=== PATIENT | female | born 1950 | race Caucasian/White ===

== ENCOUNTER → 2016-05-28 | Outpatient (CLI) | payer MEDICARE ==
--- NOTE | 2016-06-01 10:23 | MM ---
Reason for exam: screening (asymptomatic). Last mammogram was performed 4 years and 4 months ago. History: Patient is postmenopausal. Taking estrogen for 2 months beginning at age 61. Taking progesterone for 2 months beginning at age 61. Physical Findings: A clinical breast exam by your physician is recommended on an annual basis and results should be correlated with mammographic findings. MG Screening Mammo w CAD Bilateral CC and MLO view(s) were taken. Prior study comparison: January 18, 2012, bilateral digital screening mammo w/CAD. June 28, 2008, bilateral digital screening mammogram. The breast tissue is almost entirely fat. Finding: There are vascular calcifications. There is a chronic nodularity in the right breast. No significant changes in finding since January 18, 2012 and June 28, 2008. ASSESSMENT: Benign, BI-RAD 2 RECOMMENDATION: Routine screening mammogram of both breasts in 1 year.
== END | disposition home or self-care (01) ==
LOC: RADMAMWWP 14:28
PROVIDERS: ATTEND Family Medicine
DX: Z12.31 Encounter for screening mammogram for malignant neoplasm of breast (principal)

== ENCOUNTER → 2016-06-03 | Outpatient (CLI) | payer MEDICARE ==
--- NOTE | 2016-06-03 12:13 | CTL ---
EXAMINATION TYPE: CT Low Dose Lung DATE OF EXAM ORDERED: 06/03/2016 11:41 AM COMPARISON: None HISTORY: . Low Dose CT Lung Screening CT DLP: 70.[address] CTDI: 2.4 mGy IV CONTRAST USED: None. SCREENING VISIT: First visit COMPARISON: None. TECHNIQUE: Low dose computed tomography scan was performed through the chest at 1 millimeter thick se ctions and reconstructed images in the coronal plane at [address] DIAGNOSTIC QUALITY: Satisfactory FINDINGS: LUNG NODULES: Not present Left lung: no nodules identified.Right lung: no nodules identified. LUNGS: COPD: Severity: None Fibrosis: Severity:None Lymph nodes: None Other findings: None RIGHT PLEURAL SPACE: Effusion: None Calcification: None Thickening: None Pneumothorax: None LEFT PLEURAL SPACE: Effusion: None Calcification: None Thickening: None Pneumothorax: None HEART: Heart Size: Mildly enlarged Coronary calcification: Mild Pericardial effusion: None OTHER FINDINGS: Upper abdomen: No significant abnormality Bony thorax: Degenerative changes Supraclavicular region: No significant abnormalityOther: No significant abnormalityI IMPRESSION: Benign FOLLOW UP CT CHEST RECOMMENDATION: Follow-up screening in one year CT LUNG RAD: Negative category 1 LUNG RAD CATEGORY 1
== END ==
LOC: RADCTMAIN 11:10
PROVIDERS: ATTEND Family Medicine
DX: Z09 Encounter for follow-up examination after completed treatment for conditions other than malignant neoplasm (principal); Z87.891 Personal history of nicotine dependence

== ENCOUNTER → 2016-11-17 | Outpatient (CLI) | payer MEDICARE, OTHER ==
--- NOTE | 2016-11-17 17:26 | XR ---
EXAMINATION TYPE: XR Hip Complete RT DATE OF EXAM: 11/17/2016 COMPARISON: NONE HISTORY: Hip pain TECHNIQUE: 2 views FINDINGS: I see no fracture nor dislocation. Hip joint space is fairly normal. IMPRESSION: Negative right hip exam
== END | disposition home or self-care (01) ==
LOC: RADXRMAIN 16:23
PROVIDERS: ATTEND Family Medicine
DX: M25.551 Pain in right hip (principal)
CPT/HCPCS: 73502

== ENCOUNTER 2017-06-02 12:31 | Inpatient (IN) | payer MEDICARE, OTHER ==
[2017-06-02 12:47] LABS: Glucose,Whole Blood 137 mg/dL (75-99)
[2017-06-02] MEDS ORDERED: SODIUM CHLORIDE 0.9% 1,000 ML IV STA (12:51)
--- NOTE | 2017-06-02 12:54 | ED ---
General Adult HPI - General Chief complaint: Syncope Stated complaint: Near syncope Time Seen by Provider: 06/02/17 12:46 Source: patient, family, RN notes reviewed Mode of arrival: wheelchair Limitations: no limitations - History of Present Illness Initial comments: Patient is a pleasant 67-year-old female presenting to the emergency department with near syncopal episodes. Symptoms have been occurring for several weeks. Patient has episodes where legs get weak and she falls or near falls. Patient states she becomes very close to passing out and does get somewhat confused. Patient does not believe she actually fully passes out. Patient has been fatigued lately. Patient has had some increased stress and not sleeping well at night. No chest pain or dyspnea. No weakness. No abdominal pain. - Related Data Home Medications Medication Instructions Recorded Confirmed Insulin Glargine [Lantus] 18 units SQ HS 10/04/14 06/02/17 Omeprazole [PriLOSEC] 20 mg PO BID 10/04/14 06/02/17 traZODone HCL [Desyrel] 100 mg PO HS 10/04/14 06/02/17 Lisinopril [Prinivil] 20 mg PO BID 10/18/14 06/02/17 amLODIPine [Norvasc] 10 mg PO DAILY 10/18/14 06/02/17 ALPRAZolam [Xanax] 0.5 mg PO BID PRN 06/02/17 06/02/17 Aspirin 81 mg PO DAILY 06/02/17 06/02/17 Citalopram Hydrobromide [CeleXA] 40 mg PO HS 06/02/17 06/02/17 Clopidogrel [Plavix] 75 mg PO DAILY 06/02/17 06/02/17 Empagliflozin [Jardiance] 10 mg PO DAILY 06/02/17 06/02/17 Furosemide [Lasix] 20 mg PO BID 06/02/17 06/02/17 Gabapentin [Neurontin] 800 mg PO QID 06/02/17 06/02/17 Metoprolol Tartrate [Lopressor] 50 mg PO BID 06/02/17 06/02/17 Rosuvastatin [Crestor] 20 mg PO DAILY 06/02/17 06/02/17 metFORMIN HCL [Glucophage] 1,000 mg PO BID 06/02/17 06/02/17 Allergies Allergy/AdvReac Type Severity Reaction Status Date / Time No Known Allergies Allergy Verified 06/02/17 13:07 Review of Systems ROS Statement: Those systems with pertinent positive or pertinent negative responses have been documented in the HPI. ROS Other: All systems not noted in ROS Statement are negative. Constitutional: Denies: fever Eyes: Denies: eye pain ENT: Denies: ear pain Respiratory: Denies: cough Cardiovascular: Denies: chest pain Endocrine: Reports: fatigue Gastrointestinal: Denies: abdominal pain Genitourinary: Denies: dysuria Musculoskeletal: Denies: back pain Skin: Denies: rash Neurological: Denies: headache Past Medical History Past Medical History: CVA/TIA, Diabetes Mellitus, Eye Disorder, Fibromyalgia, GERD/Reflux, Hypertension, Osteoarthritis (OA), Sleep Apnea/CPAP/BIPAP Additional Past Medical History / Comment(s): 12/13/14 Pt admitted to floor s/p lap sleeve gastrectomy. Other HX: TIA 1997, diabetic retinopathy bilaterally , sleep apnea-does not have CPAP, PT HAS BALANCE ISSUES. History of Any Multi-Drug Resistant Organisms: None Reported Past Surgical History: Back Surgery, Bariatric Surgery, Section, Orthopedic Surgery Additional Past Surgical History / Comment(s): 12/13/14 Laparoscopic sleeve gastrectomy. Other SX: right Knee arthroscopy, surg., EGD, 3 C-Sections. Past Anesthesia/Blood Transfusion Reactions: No Reported Reaction Past Psychological History: Bipolar Smoking Status: Never smoker Past Alcohol Use History: None Reported Past Drug Use History: None Reported - Past Family History Father Family Medical History: Myocardial Infarction ([place]) Mother Family Medical History: No Reported History General Exam Limitations: no limitations General appearance: alert, in no apparent distress Head exam: Present: atraumatic Eye exam: Present: normal appearance, PERRL, EOMI. Absent: nystagmus ENT exam: Present: normal oropharynx Neck exam: Present: normal inspection Respiratory exam: Present: normal lung sounds bilaterally Cardiovascular Exam: Present: normal rhythm, bradycardia Expanded Peripheral pulses: 2+: Radial (R), Radial (L), Dorsalis Pedis (R), Dorsalis Pedis (L) GI/Abdominal exam: Present: soft. Absent: tenderness Extremities exam: Present: normal inspection Neurological exam: Present: alert, oriented X3, CN II-XII intact. Absent: motor sensory deficit Expanded Neurological exam: Present: protecting the airway Patient oriented to: Present: person, place, time Speech: Present: fluid speech Motor strength exam: RUE: 5, LUE: 5, RLE: 5, LLE: 5 Eye Response: (4) open spontaneously Motor Response: (6) obeys commands Verbal Response: (5) oriented Psychiatric exam: Present: normal affect, normal mood Skin exam: Present: normal color Course Vital Signs 06/02/17 06/02/17 06/02/17 12:33 13:00 14:48 Temperature 98.7 F 97.8 F Pulse Rate 70 51 L Respiratory 17 16 Rate Blood Pressure 89/52 101/54 102/58 O2 Sat by Pulse 94 L 98 Oximetry EKG Findings - EKG Comments: EKG Findings:: Sinus bradycardia 48. AR 154. QRS 106. QT 478. QTC 427. Left axis. Normal QRS. No acute ST change. Medical Decision Making - Medical Decision Making Patient reevaluated and resting comfortably in bed. Patient updated on results and plan. Case was discussed in detail with Dr. Ruggiero, who will admit his patient. Cardiology will be consult is secondary to bradycardia. - Lab Data Result diagrams: 06/02/17 13:01 06/02/17 13:01 Lab Results 06/02/17 06/02/17 06/02/17 Range/Units 12:36 13:01 13:01 WBC 7.4 (3.8-10.6) k/uL RBC 4.38 (3.80-5.40) m/uL Hgb 11.0 L (11.4-16.0) gm/dL Hct 35.5 (34.0-46.0) % MCV 81.1 (80.0-100.0) fL MCH 25.1 (25.0-35.0) pg MCHC 31.0 (31.0-37.0) g/dL RDW 15.1 (11.5-15.5) % Plt Count 270 (150-450) k/uL Neutrophils % 60 % Lymphocytes % 32 % Monocytes % 5 % Eosinophils % 1 % Basophils % 1 % Neutrophils # 4.4 (1.3-7.7) k/uL Lymphocytes # 2.4 (1.0-4.8) k/uL Monocytes # 0.4 (0-1.0) k/uL Eosinophils # 0.1 (0-0.7) k/uL Basophils # 0.0 (0-0.2) k/uL Hypochromasia Moderate PT (9.0-12.0) sec INR (<1.2) APTT (22.0-30.0) sec D-Dimer (<0.60) mg/L FEU Sodium (137-145) mmol/L Potassium (3.5-5.1) mmol/L Chloride (98-107) mmol/L Carbon Dioxide (22-30) mmol/L Anion Gap mmol/L BUN (7-17) mg/dL Creatinine (0.52-1.04) mg/dL Est GFR (MDRD) Af Amer (>60 ml/min/1.73 sqM) Est GFR (MDRD) Non-Af (>60 ml/min/1.73 sqM) Glucose (74-99) mg/dL POC Glucose (mg/dL) 137 H (75-99) mg/dL POC Glu Gasket Inspector ID Stratton, Kelly Calcium (8.4-10.2) mg/dL Magnesium (1.6-2.3) mg/dL Total Bilirubin (0.2-1.3) mg/dL AST (14-36) U/L ALT (9-52) U/L Alkaline Phosphatase (38-126) U/L Total Creatine Kinase 76 (30-135) U/L CK-MB (CK-2) 1.0 (0.0-2.4) ng/mL CK-MB (CK-2) Rel Index 1.3 Troponin I <0.012 (0.000-0.034) ng/mL Total Protein (6.3-8.2) g/dL Albumin (3.5-5.0) g/dL Urine Color Urine Appearance (Clear) Urine pH (5.0-8.0) Ur Specific Benedict (1.001-1.035) Urine Protein (Negative) Urine Glucose (UA) (Negative) Urine Ketones (Negative) Urine Blood (Negative) Urine Nitrite (Negative) Urine Bilirubin (Negative) Urine Urobilinogen (<2.0) mg/dL Ur Leukocyte Esterase (Negative) Urine RBC (0-5) /hpf Urine WBC (0-5) /hpf Ur Squamous Epith Cells (0-4) /hpf Urine Bacteria (None) /hpf Hyaline Casts (0-2) /lpf Urine Mucus (None) /hpf 06/02/17 06/02/17 06/02/17 Range/Units 13:01 13:01 13:53 WBC (3.8-10.6) k/uL RBC (3.80-5.40) m/uL Hgb (11.4-16.0) gm/dL Hct (34.0-46.0) % MCV (80.0-100.0) fL MCH (25.0-35.0) pg MCHC (31.0-37.0) g/dL RDW (11.5-15.5) % Plt Count (150-450) k/uL Neutrophils % % Lymphocytes % % Monocytes % % Eosinophils % % Basophils % % Neutrophils # (1.3-7.7) k/uL Lymphocytes # (1.0-4.8) k/uL Monocytes # (0-1.0) k/uL Eosinophils # (0-0.7) k/uL Basophils # (0-0.2) k/uL Hypochromasia PT 10.4 (9.0-12.0) sec INR 1.1 (<1.2) APTT 22.8 (22.0-30.0) sec D-Dimer 0.55 (<0.60) mg/L FEU Sodium 141 (137-145) mmol/L Potassium 4.2 (3.5-5.1) mmol/L Chloride 103 (98-107) mmol/L Carbon Dioxide 24 (22-30) mmol/L Anion Gap 14 mmol/L BUN 23 H (7-17) mg/dL Creatinine 1.85 H (0.52-1.04) mg/dL Est GFR (MDRD) Af Amer 33 (>60 ml/min/1.73 sqM) Est GFR (MDRD) Non-Af 27 (>60 ml/min/1.73 sqM) Glucose 106 H (74-99) mg/dL POC Glucose (mg/dL) (75-99) mg/dL POC Glu Gasket Inspector ID Calcium 9.6 (8.4-10.2) mg/dL Magnesium 1.7 (1.6-2.3) mg/dL Total Bilirubin 0.2 (0.2-1.3) mg/dL AST 15 (14-36) U/L ALT 15 (9-52) U/L Alkaline Phosphatase 58 (38-126) U/L Total Creatine Kinase (30-135) U/L CK-MB (CK-2) (0.0-2.4) ng/mL CK-MB (CK-2) Rel Index Troponin I (0.000-0.034) ng/mL Total Protein 7.0 (6.3-8.2) g/dL Albumin 4.1 (3.5-5.0) g/dL Urine Color Yellow Urine Appearance Clear (Clear) Urine pH 5.0 (5.0-8.0) Ur Specific Benedict 1.010 (1.001-1.035) Urine Protein Negative (Negative) Urine Glucose (UA) 3+ H (Negative) Urine Ketones Negative (Negative) Urine Blood Negative (Negative) Urine Nitrite Negative (Negative) Urine Bilirubin Negative (Negative) Urine Urobilinogen <2.0 (<2.0) mg/dL Ur Leukocyte Esterase Small H (Negative) Urine RBC <1 (0-5) /hpf Urine WBC 2 (0-5) /hpf Ur Squamous Epith Cells 1 (0-4) /hpf Urine Bacteria Rare H (None) /hpf Hyaline Casts 14 H (0-2) /lpf Urine Mucus Rare H (None) /hpf - Radiology Data Radiology results: report reviewed (Computed tomography scan of the brain reveals no acute process.), image reviewed (Two-view chest x-ray shows no acute process.) Disposition Clinical Impression: Near syncope, Bradycardia Disposition: [facility] Referrals: Chester Ruggiero MD [Primary Care Provider] - 1-2 days Decision Time: 15:01
[2017-06-02 13:16] LABS: Basophils % (A) 1 %; Eosinophils # (A) 0.1 k/uL (0-0.7); Eosinophils % (A) 1 %; HCT 35.5 % (34.0-46.0); Hypochromasia Moderate; Lymphocytes # (A) 2.4 k/uL (1.0-4.8); Lymphocytes % (A) 32 %; MCH 25.1 pg (25.0-35.0); MCV 81.1 fL (80.0-100.0); Mean Platelet Volume 7.9; Monocytes # (A) 0.4 k/uL (0-1.0); Monocytes % (A) 5 %; Neutrophils # (A) 4.4 k/uL (1.3-7.7); Neutrophils % (A) 60 %; Platelet Count 270 k/uL (150-450); RBC 4.38 m/uL (3.80-5.40); RDW 15.1 % (11.5-15.5); WBC 7.4 k/uL (3.8-10.6)
[2017-06-02 13:25] LABS: Albumin 4.1 g/dL (3.5-5.0); Calcium 9.6 mg/dL (8.4-10.2); Potassium 4.2 mmol/L (3.5-5.1); Total Bilirubin 0.2 mg/dL (0.2-1.3)
--- NOTE | 2017-06-02 13:26 | CT ---
EXAMINATION TYPE: CT brain wo con DATE OF EXAM: 06/02/2017 COMPARISON: 03/06/2015 HISTORY: fall from syncope, dizziness, light-headed CT DLP: 963.6 mGycm Automated exposure control for dose reduction was used. FINDINGS: There is no suspicious extra-axial fluid collection. No intracranial hemorrhage, midline shift or mas s effect. Scattered areas of hypoattenuation are seen within the deep white matter of the frontal lob es, likely related to chronic microangiopathy. Santos-white matter junction is preserved. Ventricles an d peripheral sulci are again symmetric and mildly prominent compatible with minimal age-related atrop hy is seen on the prior exam. Frontal sinuses are atrophic. Visualized paranasal sinuses and mastoid air cells are well aerated. There is atherosclerosis of the intracranial vasculature. Orbits and extr aocular muscles are symmetric and lenses are in place. IMPRESSION: 1. NO ACUTE INTRACRANIAL PROCESS. 2. MILD BURDEN NONSPECIFIC WHITE MATTER CHANGE, LIKELY ON THE BASIS OF CHRONIC MICROANGIOPATHY.
[2017-06-02 13:35] LABS: Creatine Kinase 76 U/L (30-135); D-Dimer 0.55 mg/L FEU (<0.60); INR 1.1 (<1.2); Partial Thromboplastin Time 22.8 sec (22.0-30.0); Prothrombin Time 10.4 sec (9.0-12.0)
--- NOTE | 2017-06-02 13:36 | XR ---
EXAMINATION TYPE: XR chest 2V DATE OF EXAM: 06/02/2017 COMPARISON: NONE HISTORY: Shortness of breath. TECHNIQUE: Frontal and lateral views of the chest are obtained. FINDINGS: There is no focal air space opacity, pleural effusion, or pneumothorax seen. The cardiac silhouette size is within normal limits. The osseous structures are intact. IMPRESSION: No acute cardiopulmonary process.
[2017-06-02 13:48] LABS: Troponin I <0.012 ng/mL (0.000-0.034)
[2017-06-02 14:18] LABS: Appearance,Urine Clear (Clear); Bacteria,Urine Rare /hpf; Bilirubin,Urine Negative (Negative); Blood,Urine Negative (Negative); Color,Urine Yellow; Glucose,Urine (UA) 3+ (Negative); Hyaline Casts,Urine 14 /lpf (0-2); Ketones,Urine Negative (Negative); Leukocyte Esterase,Urine Small (Negative); Mucus,Urine Rare /hpf; Protein,Urine Negative (Negative); RBC,Urine <1 /hpf (0-5); Squamous Epithelial Cell,Urine 1 /hpf (0-4); Urobilinogen,Urine <2.0 mg/dL (<2.0); WBC,Urine 2 /hpf (0-5)
[2017-06-02] MEDS ORDERED: NALOXONE 0.4 MG/ML 1 ML VIAL IV PRN (15:01)
[2017-06-02 17:01] LABS: Glucose,Whole Blood 119 mg/dL (75-99)
[2017-06-02 18:25] LABS: T4, Free (Free Thyroxine) 1.35 ng/dL (0.78-2.19)
[2017-06-02] MEDS: GABAPENTIN 400 MG CAP PO SCH ×2 (20:47→22:10)
[2017-06-02] MEDS: metFORMIN 500 MG TAB PO SCH (20:47)
[2017-06-02] MEDS: CITALOPRAM HYDROBROMIDE 20 MG TAB PO SCH (20:48)
[2017-06-02] MEDS: traZODone HCL 100 MG TAB PO SCH (20:48)
[2017-06-02] MEDS: LISINOPRIL 20 MG TAB PO SCH (20:48)
[2017-06-02] MEDS: SODIUM CHLORIDE 0.9% 1,000 ML IV SCH (20:48)
[2017-06-02] MEDS: PANTOPRAZOLE 40 MG TABLET PO SCH (20:48)
[2017-06-02] MEDS: FUROSEMIDE 20 MG TAB PO SCH (20:48)
[2017-06-02] MEDS: INSULIN DETEMIR 100 UNIT/ML 10 ML VIAL SQ SCH (20:49)
[2017-06-02 21:22] LABS: Glucose,Whole Blood 108 mg/dL (75-99)
[2017-06-02] MEDS: ALPRAZolam 0.5 MG TAB PO PRN (22:10)
[2017-06-03] MEDS: SODIUM CHLORIDE 0.9% 1,000 ML IV SCH ×2 (04:54→15:43)
[2017-06-03 06:07] LABS: Glucose,Whole Blood 93 mg/dL (75-99)
[2017-06-03] MEDS: PANTOPRAZOLE 40 MG TABLET PO SCH ×2 (06:12→15:43)
--- NOTE | 2017-06-03 07:27 | P.HPIM ---
History of Present Illness H&P Date: 06/03/17 Chief Complaint: Multiple presyncopal/syncopal episodes. This is history and physical on a 67-year-old white female with history of hypertension who is recently . The patient states for the last month or so she's had 25 episodes of presyncope and dizziness. No overt syncopal episode stated. No provocative or palliative factors stated. The patient states episodes last between 5-15 minutes but are becoming more intense. The patient has headache also. No nausea. No chest pain is stated. No significant palpitations noted. The patient was found to have bradycardia and is now admitted for observation of this. The patient states no amaurosis fugax. No significant lateralizing numbness or tingling or weakness stated. Review of Systems Constitutional: Denies chills, Denies fever Eyes: denies blurred vision, denies pain Ears, nose, mouth and throat: Denies headache, Denies sore throat Cardiovascular: Reports lightheadedness, Denies chest pain, Denies shortness of breath Respiratory: Denies cough Gastrointestinal: Denies abdominal pain, Denies diarrhea, Denies nausea, Denies vomiting Genitourinary: Denies dysuria, Denies hematuria Musculoskeletal: Denies myalgias Past Medical History Past Medical History: CVA/TIA, Diabetes Mellitus, Eye Disorder, Fibromyalgia, GERD/Reflux, Hearing Disorder / Deafness, Hypertension, Osteoarthritis (OA), Sleep Apnea/CPAP/BIPAP Additional Past Medical History / Comment(s): 12/13/14 lap sleeve gastrectomy. Other HX: TIA 1997, diabetic retinopathy bilaterally- "had shots in eyes", sleep apnea-does not have CPAP, PT HAS BALANCE ISSUES uses cane or walker as needed. History of Any Multi-Drug Resistant Organisms: None Reported Past Surgical History: Back Surgery, Bariatric Surgery, Section, Orthopedic Surgery Additional Past Surgical History / Comment(s): 12/13/14 Laparoscopic sleeve gastrectomy. Other SX: right Knee arthroscopy, surg., EGD, 3 C-Sections. Past Anesthesia/Blood Transfusion Reactions: No Reported Reaction Smoking Status: Never smoker - Past Family History Father Family Medical History: Myocardial Infarction ([place]) Mother Family Medical History: No Reported History Medications and Allergies Home Medications Medication Instructions Recorded Confirmed Type Insulin Glargine [Lantus] 18 units SQ HS 10/04/14 06/02/17 History Omeprazole [PriLOSEC] 20 mg PO BID 10/04/14 06/02/17 History traZODone HCL [Desyrel] 100 mg PO HS 10/04/14 06/02/17 History Lisinopril [Prinivil] 20 mg PO BID 10/18/14 06/02/17 History amLODIPine [Norvasc] 10 mg PO DAILY 10/18/14 06/02/17 History ALPRAZolam [Xanax] 0.5 mg PO BID PRN 06/02/17 06/02/17 History Aspirin 81 mg PO DAILY 06/02/17 06/02/17 History Citalopram Hydrobromide [CeleXA] 40 mg PO HS 06/02/17 06/02/17 History Clopidogrel [Plavix] 75 mg PO DAILY 06/02/17 06/02/17 History Empagliflozin [Jardiance] 10 mg PO DAILY 06/02/17 06/02/17 History Furosemide [Lasix] 20 mg PO BID 06/02/17 06/02/17 History Gabapentin [Neurontin] 800 mg PO QID 06/02/17 06/02/17 History Metoprolol Tartrate [Lopressor] 50 mg PO BID 06/02/17 06/02/17 History Rosuvastatin [Crestor] 20 mg PO DAILY 06/02/17 06/02/17 History metFORMIN HCL [Glucophage] 1,000 mg PO BID 06/02/17 06/02/17 History Allergies Allergy/AdvReac Type Severity Reaction Status Date / Time No Known Allergies Allergy Verified 06/02/17 13:07 Physical Exam Vitals: Vital Signs Temp Pulse Pulse Resp BP BP Pulse Ox 06/03/17 04:00 47 L 13 110/49 97 06/03/17 00:00 49 L 06/02/17 23:37 97.6 F 52 L 16 112/48 95 06/02/17 20:00 97.8 F 54 L 16 112/62 97 06/02/17 16:00 97 F L 98 18 117/60 98 06/02/17 15:45 98.1 F 50 L 16 106/57 98 06/02/17 14:48 97.8 F 51 L 16 102/58 98 06/02/17 13:00 101/54 06/02/17 12:33 98.7 F 70 17 89/52 94 L Intake and Output 06/02/17 06/03/17 06/03/17 22:59 06:59 14:59 Intake Total 240 1800 Output Total 300 Balance 240 1500 Intake: Oral 240 1800 Output: Urine 300 Other: # Voids 1 Weight 73 kg - Constitutional General appearance: average body habitus - EENT Eyes: EOMI - Neck Neck: no lymphadenopathy - Respiratory Respiratory: bilateral: CTA - Cardiovascular Heart rate: 52 Rhythm: regular Heart sounds: normal: S1, S2 Abnormal Heart Sounds: no S3 Gallop - Gastrointestinal General gastrointestinal: soft, no tenderness - Musculoskeletal Musculoskeletal: strength equal bilaterally - Psychiatric Psychiatric: A&O x's 3, appropriate affect, intact judgment & insight Results CBC & Chem 7: 06/02/17 13:01 06/02/17 13:01 Labs: Abnormal Lab Results - Last 24 Hours (Table) 06/02/17 06/02/17 06/02/17 Range/Units 12:36 13:01 13:01 Hgb 11.0 L (11.4-16.0) gm/dL BUN 23 H (7-17) mg/dL Creatinine 1.85 H (0.52-1.04) mg/dL Glucose 106 H (74-99) mg/dL POC Glucose (mg/dL) 137 H (75-99) mg/dL Urine Glucose (UA) (Negative) Ur Leukocyte Esterase (Negative) Urine Bacteria (None) /hpf Hyaline Casts (0-2) /lpf Urine Mucus (None) /hpf 06/02/17 06/02/17 06/02/17 Range/Units 13:53 16:52 21:19 Hgb (11.4-16.0) gm/dL BUN (7-17) mg/dL Creatinine (0.52-1.04) mg/dL Glucose (74-99) mg/dL POC Glucose (mg/dL) 119 H 108 H (75-99) mg/dL Urine Glucose (UA) 3+ H (Negative) Ur Leukocyte Esterase Small H (Negative) Urine Bacteria Rare H (None) /hpf Hyaline Casts 14 H (0-2) /lpf Urine Mucus Rare H (None) /hpf Thrombosis Risk Factor Assmnt - Choose All That Apply Any of the Below Risk Factors Present?: Yes Each Factor Represents 1 point: Obesity (BMI >25) Other Risk Factors: Yes Each Risk Factor Represents 2 Points: Age 61-74 years Other congenital or acquired thrombophilia - If yes, enter type in comment: No Thrombosis Risk Factor Assessment Total Risk Factor Score: 3 Thrombosis Risk Factor Assessment Level: Moderate Risk Assessment and Plan (1) Hypertension Current Visit: Yes Status: Acute Code(s): I10 - ESSENTIAL (PRIMARY) HYPERTENSION SNOMED Code(s): 56979194 (2) Bradycardia Current Visit: Yes Status: Acute Code(s): R00.1 - BRADYCARDIA, UNSPECIFIED SNOMED Code(s): 97082708 (3) Near syncope Current Visit: Yes Status: Acute Code(s): R55 - SYNCOPE AND COLLAPSE SNOMED Code(s): 016832318 Plan: Check echocardiogram and carotid Doppler today. Otherwise, stop any chronotropic drugs and watch vitals and blood pressure closely. Check electrolytes elements with thyroid. Cardiology is not consulted. She orders otherwise. Time with Patient: Greater than 30
[2017-06-03] MEDS: amLODIPine 10 MG TAB PO SCH (07:57)
[2017-06-03] MEDS: FUROSEMIDE 20 MG TAB PO SCH (07:57)
[2017-06-03] MEDS: ATORVASTATIN 40 MG TAB PO SCH (07:57)
[2017-06-03] MEDS: ASPIRIN 81 MG PO SCH (07:57)
[2017-06-03] MEDS: CLOPIDOGREL 75 MG TAB PO SCH (07:57)
[2017-06-03] MEDS: metFORMIN 500 MG TAB PO SCH (07:58)
[2017-06-03] MEDS: GABAPENTIN 400 MG CAP PO SCH ×4 (07:58→20:52)
[2017-06-03] MEDS: LISINOPRIL 20 MG TAB PO SCH (07:58)
[2017-06-03] MEDS ORDERED: LISINOPRIL 10 MG TAB PO SCH (09:00)
[2017-06-03] MEDS: EMPAGLIFLOZIN 10 MG PO SCH (10:37)
[2017-06-03] MEDS: NYSTATIN 100,000 UNIT/GM OINT 30 GM TUBE TOPICAL SCH ×2 (10:39→20:53)
[2017-06-03] MEDS: TRIAMCINOLONE ACET 0.1% OINTMENT 15 GM TUBE TOPICAL SCH ×2 (10:39→20:53)
--- NOTE | 2017-06-03 11:44 | US ---
EXAMINATION TYPE: US carotid duplex BILAT DATE OF EXAM: 06/03/2017 COMPARISON: Prior carotid ultrasound March 07, 2015 CLINICAL HISTORY: Presyncope. Black out, leg weakness, stroke 1997, TIA x 3-4 yrs ago EXAM MEASUREMENTS: RIGHT: Peak Systolic Velocity (PSV) cm/sec ----- Right CCA: 77.8 ----- Right ICA: 122.7 ----- Right ECA: 93.5 ICA/CCA ratio: 1.6 RIGHT: End Diastole cm/sec ----- Right CCA: 22.7 ----- Right ICA: 46.7 ----- Right ECA: 10.9 LEFT: Peak Systolic Velocity (PSV) cm/sec ----- Left CCA: 82.5 ----- Left ICA: 113.9 ----- Left ECA: 74.8 ICA/CCA ratio: 1.4 LEFT: End Diastole cm/sec ----- Left CCA: 17.5 ----- Left ICA: 33.6 ----- Left ECA: 8.7 VERTEBRALS (direction of flow): Right Vertebral: Antegrade Left Vertebral: Antegrade Rhythm: Normal Grayscale images show minimal eccentric plaque left carotid bulb. Velocity measurements and ratios re main within normal limits bilaterally. IMPRESSION: No hemodynamically significant stenosis is seen in either internal carotid artery.
[2017-06-03 11:53] LABS: Glucose,Whole Blood 83 mg/dL (75-99)
--- NOTE | 2017-06-03 11:58 | ECHOF ---
Referral Reason:Presyncope MEASUREMENTS -------- HEIGHT: 152.4 cm WEIGHT: 72.6 kg BP: 120/60 IVSd: 1.4 cm (0.6 - 1.1) LVIDd: 5.2 cm (3.9 - 5.3) LVPWd: 1.2 cm (0.6 - 1.1) IVSs: 1.6 cm LVIDs: 4.1 cm LVPWs: 1.4 cm LA Diam: 3.9 cm (2.7 - 3.8) LAESV Index (A-L): 49.35 ml/m Ao Diam: 3.5 cm (2.0 - 3.7) AV Cusp: 1.5 cm (1.5 - 2.6) LA Diam: 4.8 cm (2.7 - 3.8) MV EXCURSION: 20.824 mm (> 18.000) MV EF SLOPE: 116 mm/s (70 - 150) EPSS: 0.3 cm MV E Omar: 0.65 m/s MV DecT: 345 ms MV A Omar: 0.80 m/s MV E/A Ratio: 0.81 RAP: 5.00 mmHg RVSP: 27.81 mmHg FINDINGS -------- Sinus rhythm. This was a technically good study. The left ventricular size is normal. There is mild concentric left ventricular hypertrophy. Overa ll left ventricular systolic function is low-normal with, an EF between 50 - 55 %. The right ventricle is normal in size. LA is severely dilated >40 ml/m2 The right atrial size is normal. The aortic valve is trileaflet, and appears structurally normal. No aortic stenosis or regurgitation. Mild mitral regurgitation is present. Mild tricuspid regurgitation present. There is no evidence of pulmonary hypertension. The right v entricular systolic pressure, as measured by Doppler, is 27.81mmHg. There is no pulmonic regurgitation present. The aortic root size is normal. There is no pericardial effusion. CONCLUSIONS -------- 1. The left ventricular size is normal. 2. There is mild concentric left ventricular hypertrophy. 3. Overall left ventricular systolic function is low-normal with, an EF between 50 - 55 %. 4. LA is severely dilated >40 ml/m2 5. The aortic valve is trileaflet, and appears structurally normal. No aortic stenosis or regurgitati on. 6. Mild mitral regurgitation is present. 7. Mild tricuspid regurgitation present. 8. There is no evidence of pulmonary hypertension. 9. The right ventricular systolic pressure, as measured by Doppler, is 27.81mmHg. 10. There is no pulmonic regurgitation present. 11. The aortic root size is normal. 12. There is no pericardial effusion. POTTER [employer] CERAMIC ARTIST: Kelly Lincoln RDCS
[2017-06-03 17:05] LABS: Glucose,Whole Blood 107 mg/dL (75-99)
[2017-06-03] MEDS: CITALOPRAM HYDROBROMIDE 20 MG TAB PO SCH (20:52)
[2017-06-03] MEDS: INSULIN DETEMIR 100 UNIT/ML 10 ML VIAL SQ SCH (20:52)
[2017-06-03 21:00] LABS: Glucose,Whole Blood 160 mg/dL (75-99)
[2017-06-03] MEDS: ALPRAZolam 0.5 MG TAB PO PRN (21:44)
[2017-06-03] MEDS: traZODone HCL 100 MG TAB PO SCH (21:44)
[2017-06-04] MEDS: SODIUM CHLORIDE 0.9% 1,000 ML IV SCH (05:51)
[2017-06-04] MEDS: PANTOPRAZOLE 40 MG TABLET PO SCH (05:57)
[2017-06-04 06:40] LABS: Glucose,Whole Blood 102 mg/dL (75-99)
--- NOTE | 2017-06-04 07:33 | P.DS ---
Providers Date of admission: 06/02/17 15:02 Expected date of discharge: 06/04/17 Attending physician: Chester Ruggiero Consults: 06/02/17 15:03 Consult Physician Urgent Consulting Provider: Chemo Lundy Consult Reason/Comments: near syncope, bradycardia Do you want consulting provider notified?: Yes Primary care physician: Chester Ruggiero - Discharge Diagnosis(es) (1) Hypertension Current Visit: Yes Status: Acute (2) Bradycardia Current Visit: Yes Status: Acute (3) Near syncope Current Visit: Yes Status: Acute Hospital Course: This is a discharge summary 67-year-old white female with a admitted syncope/ presyncope history of bradycardia. The patient had echocardiogram carotid Doppler and computed tomography scan of the head which did not show significant issue. We will increase ambulation. She had one run of what seems to be atrial fibrillation last night, which is completely symptomatically this time. I suspect we might need to do an event monitor as an outpatient. The patient is discharged once cleared by cardiology. Patient Condition at Discharge: Serious Plan - Discharge Summary Discharge Rx Participant: Yes New Discharge Prescriptions: Continue Insulin Glargine [Lantus] 18 units SQ HS Omeprazole [PriLOSEC] 20 mg PO BID traZODone HCL [Desyrel] 100 mg PO HS amLODIPine [Norvasc] 10 mg PO DAILY Lisinopril [Prinivil] 20 mg PO BID ALPRAZolam [Xanax] 0.5 mg PO BID PRN PRN Reason: Anxiety Aspirin 81 mg PO DAILY Citalopram Hydrobromide [CeleXA] 40 mg PO HS Clopidogrel [Plavix] 75 mg PO DAILY Empagliflozin [Jardiance] 10 mg PO DAILY Furosemide [Lasix] 20 mg PO BID Gabapentin [Neurontin] 800 mg PO QID metFORMIN HCL [Glucophage] 1,000 mg PO BID Rosuvastatin [Crestor] 20 mg PO DAILY Discontinued Metoprolol Tartrate [Lopressor] 50 mg PO BID Discharge Medication List Insulin Glargine [Lantus] 18 units SQ HS 10/04/14 [History] Omeprazole [PriLOSEC] 20 mg PO BID 10/04/14 [History] traZODone HCL [Desyrel] 100 mg PO HS 10/04/14 [History] Lisinopril [Prinivil] 20 mg PO BID 10/18/14 [History] amLODIPine [Norvasc] 10 mg PO DAILY 10/18/14 [History] ALPRAZolam [Xanax] 0.5 mg PO BID PRN 06/02/17 [History] Aspirin 81 mg PO DAILY 06/02/17 [History] Citalopram Hydrobromide [CeleXA] 40 mg PO HS 06/02/17 [History] Clopidogrel [Plavix] 75 mg PO DAILY 06/02/17 [History] Empagliflozin [Jardiance] 10 mg PO DAILY 06/02/17 [History] Furosemide [Lasix] 20 mg PO BID 06/02/17 [History] Gabapentin [Neurontin] 800 mg PO QID 06/02/17 [History] Rosuvastatin [Crestor] 20 mg PO DAILY 06/02/17 [History] metFORMIN HCL [Glucophage] 1,000 mg PO BID 06/02/17 [History] Follow up Appointment(s)/Referral(s): Chester Ruggiero MD [Primary Care Provider] - 1-2 days
[2017-06-04] MEDS: CLOPIDOGREL 75 MG TAB PO SCH (08:38)
[2017-06-04] MEDS: GABAPENTIN 400 MG CAP PO SCH ×2 (08:38→12:52)
[2017-06-04] MEDS: amLODIPine 10 MG TAB PO SCH (08:38)
[2017-06-04] MEDS: ASPIRIN 81 MG PO SCH (08:39)
[2017-06-04] MEDS: ATORVASTATIN 40 MG TAB PO SCH (08:39)
[2017-06-04] MEDS: TRIAMCINOLONE ACET 0.1% OINTMENT 15 GM TUBE TOPICAL SCH (08:40)
[2017-06-04] MEDS: NYSTATIN 100,000 UNIT/GM OINT 30 GM TUBE TOPICAL SCH (08:40)
[2017-06-04] MEDS: EMPAGLIFLOZIN 10 MG PO SCH (08:40)
--- NOTE | 2017-06-04 08:44 | P.CRDCN ---
History of Present Illness Consult date: 06/03/17 Requesting physician: Chester Ruggiero Chief complaint: near syncope History of present illness: This is a 67-year-old female with history of hypertension,prior TIA, sleep apnea,diabetes, fibromyalgia, who presented to the hospital with symptoms of near syncope. Patient states that she gets very lightheaded, does not experience any dizziness, but feels like she might pass out. She states that she leans against the wall or sits down, and feels better.EKG on arrival did show a sinus bradycardia with a heart rate in the 40s.blood pressure 120/60, 94 % on room air.CBC is normal, potassium 4.2, BUN 23, creatinine 1.8. D-dimer 0.5.troponin 0.012. TSH normal.we will hold patient's Lasix and hydrate the patient, continue current dose of beta walker. Check echocardiogram with Doppler study. Past Medical History Past Medical History: CVA/TIA, Diabetes Mellitus, Eye Disorder, Fibromyalgia, GERD/Reflux, Hearing Disorder / Deafness, Hypertension, Osteoarthritis (OA), Sleep Apnea/CPAP/BIPAP Additional Past Medical History / Comment(s): 12/13/14 lap sleeve gastrectomy. Other HX: TIA 1997, diabetic retinopathy bilaterally- "had shots in eyes", sleep apnea-does not have CPAP, PT HAS BALANCE ISSUES uses cane or walker as needed. History of Any Multi-Drug Resistant Organisms: None Reported Past Surgical History: Back Surgery, Bariatric Surgery, Section, Orthopedic Surgery Additional Past Surgical History / Comment(s): 12/13/14 Laparoscopic sleeve gastrectomy. Other SX: right Knee arthroscopy, surg., EGD, 3 C-Sections. Past Anesthesia/Blood Transfusion Reactions: No Reported Reaction Smoking Status: Never smoker - Past Family History Father Family Medical History: Myocardial Infarction ([place]) Mother Family Medical History: No Reported History Medications and Allergies Home Medications Medication Instructions Recorded Confirmed Type Insulin Glargine [Lantus] 18 units SQ HS 10/04/14 06/02/17 History Omeprazole [PriLOSEC] 20 mg PO BID 10/04/14 06/02/17 History traZODone HCL [Desyrel] 100 mg PO HS 10/04/14 06/02/17 History Lisinopril [Prinivil] 20 mg PO BID 10/18/14 06/02/17 History amLODIPine [Norvasc] 10 mg PO DAILY 10/18/14 06/02/17 History ALPRAZolam [Xanax] 0.5 mg PO BID PRN 06/02/17 06/02/17 History Aspirin 81 mg PO DAILY 06/02/17 06/02/17 History Citalopram Hydrobromide [CeleXA] 40 mg PO HS 06/02/17 06/02/17 History Clopidogrel [Plavix] 75 mg PO DAILY 06/02/17 06/02/17 History Empagliflozin [Jardiance] 10 mg PO DAILY 06/02/17 06/02/17 History Furosemide [Lasix] 20 mg PO BID 06/02/17 06/02/17 History Gabapentin [Neurontin] 800 mg PO QID 06/02/17 06/02/17 History Rosuvastatin [Crestor] 20 mg PO DAILY 06/02/17 06/02/17 History metFORMIN HCL [Glucophage] 1,000 mg PO BID 06/02/17 06/02/17 History Allergies Allergy/AdvReac Type Severity Reaction Status Date / Time No Known Allergies Allergy Verified 06/02/17 13:07 Physical Exam Vitals: Vital Signs Temp Pulse Resp BP Pulse Ox 06/04/17 04:00 97.6 F 52 L 10 L 126/62 94 L 06/04/17 00:00 98.1 F 56 L 10 L 121/56 93 L 06/03/17 20:00 98.2 F 59 L 12 128/64 95 06/03/17 16:00 97.6 F 56 L 16 118/58 95 06/03/17 11:11 98 F 51 L 18 110/54 95 Intake and Output 06/03/17 06/04/17 06/04/17 22:59 06:59 14:59 Intake Total 240 600 200 Balance 240 600 200 Intake: Oral 240 600 200 Other: # Voids 2 Weight 73.3 kg PHYSICAL EXAMINATION: HEENT: [Head is atraumatic, normocephalic. Pupils equal, round. Neck is supple. There is no elevated jugular venous pressure.] HEART EXAMINATION: [Heart S1, S2 normal. No murmur or gallop heard.] CHEST EXAMINATION:[ Lungs are clear to auscultation and precussion. No chest wall tenderness is noted on palpation or with deep breathing.] ABDOMEN: [ Soft, nontender. Bowel sounds are heard. No organomegaly noted]. EXTREMITIES:[ 2+ peripheral pulses with no evidence of peripheral edema and no calf tenderness noted]. NEUROLOGIC [patient is awake, alert and oriented -3.] . Results 06/02/17 13:01 06/02/17 13:01 Current Medications Generic Name Dose Route Start Last Admin Trade Name Freq PRN Reason Stop Dose Admin Alprazolam 0.5 mg 06/02/17 17:44 06/03/17 21:44 Xanax PO 0.5 mg BID PRN Administration Anxiety Amlodipine Besylate 10 mg 06/03/17 09:00 06/04/17 08:38 Norvasc PO 10 mg DAILY VEDA Administration Aspirin 81 mg 06/03/17 09:00 06/03/17 07:57 Aspirin PO 81 mg DAILY VEDA Administration Atorvastatin Calcium 40 mg 06/03/17 09:00 06/03/17 07:57 Lipitor PO 40 mg DAILY VEDA Administration Citalopram Hydrobromide 40 mg 06/02/17 21:00 06/03/17 20:52 Celexa PO 40 mg HS VEDA Administration Clopidogrel Bisulfate 75 mg 06/03/17 09:00 06/04/17 08:38 Plavix PO 75 mg DAILY VEDA Administration Gabapentin 800 mg 06/02/17 18:00 06/04/17 08:38 Neurontin PO 800 mg QID VEDA Administration Sodium Chloride 1,000 mls @ 80 mls/hr 06/02/17 15:15 06/04/17 05:51 Saline 0.9% IV Not Given .[id number] VEDA Insulin Detemir 18 unit 06/02/17 21:00 06/03/17 20:52 Levemir SQ 18 unit HS VEDA Administration Metformin HCl 1,000 mg 06/02/17 21:00 06/03/17 07:58 Glucophage PO 1,000 mg BID VEDA Administration Naloxone HCl 0.2 mg 06/02/17 15:01 Narcan IV Q2M PRN Opioid Reversal Patient's Own Med ( 10 mg 06/03/17 09:00 06/03/17 10:37 Empagliflozin [ PO Not Given Jardiance] 10 Mg) DAILY VEDA Nystatin 1 applic 06/03/17 09:00 06/03/17 20:53 Mycostatin Oint TOPICAL 1 applic BID VEDA Administration Pantoprazole Sodium 40 mg 06/02/17 18:00 06/04/17 05:57 Protonix PO 40 mg AC-BID VEDA Administration Trazodone HCl 100 mg 06/02/17 21:00 06/03/17 21:44 Desyrel PO 100 mg HS VEDA Administration Triamcinolone Acetonide 1 applic 06/03/17 09:00 06/03/17 20:53 Kenalog TOPICAL 1 applic BID VEDA Administration Intake and Output 06/03/17 06/04/17 06/04/17 22:59 06:59 14:59 Intake Total 240 600 200 Balance 240 600 200 Intake: Oral 240 600 200 Other: # Voids 2 Weight 73.3 kg 06/02/17 13:01 06/02/17 13:01 EKG Interpretations (text) EKG shows sinus bradycardia with no acute changes. Assessment and Plan Plan: assessment and plan #1 symptoms of lightheadedness with near-syncope could be secondary to dehydration and bradycardia. Lasix and beta walker will be placed on hold. We will hydrate the patient. #2 hypertension #3 diabetes #4 prior TIA plan We will obtain an echocardiogram with Doppler study. Continue to hold Lasix and beta walker, continue to hydrate the patient. Check lytes BUN and creatinine in the morning. DNP note has been reviewed, I agree with a documented findings and plan of care. Patient was seen and examined.
[2017-06-04 09:53] LABS: Anion Gap 10 mmol/L; Blood Urea Nitrogen 25 mg/dL (7-17); Calcium 9.5 mg/dL (8.4-10.2); Carbon Dioxide 26 mmol/L (22-30); Chloride 106 mmol/L (98-107); Glucose 242 mg/dL (74-99); Potassium 4.1 mmol/L (3.5-5.1); Sodium 142 mmol/L (137-145)
[2017-06-04 11:49] LABS: Glucose,Whole Blood 136 mg/dL (75-99)
[2017-06-04 13:45] VITALS: TEMP 97
[2017-06-04 13:46] VITALS: BP 116/58; PULSE 66; RESP 17
--- NOTE | 2017-06-04 14:34 | CONS ---
CONSULTATION This lady was hospitalized with what seems to be some dehydration, and also had a bradycardia. We held her beta-walker this morning. She feels better. I have had her ambulate the hallways with ambulation. She is in a sinus rhythm at 70 beats per minute. Vital signs are stable S1, S2 heard normally. Lungs are clear. Abdomen and lower exam unchanged. I am recommending that we check a magnesium level, increase activity and she can be discharged without beta walker and I will see her in the office in 2 weeks. BP control is optimal. We can later on probably reintroduce beta walker at a lower dose if the heart rate holds up. But for now she is doing well and I am advising she can be discharged without beta-walker and office visit in 2 weeks. Discussed my thoughts in detail with the patient. Physical exam: There are no new significant findings. MMODL / IJN: [id number] /
== END 2017-06-04 14:30 | disposition home or self-care (01) | DRG 312 ==
LOC: EC 12:31 → 6SEL 15:02
PROVIDERS: ADMIT Family Medicine; ATTEND Family Medicine
DX: R55 Syncope and collapse (principal); E11.319 Type 2 diabetes mellitus with unspecified diabetic retinopathy without macular edema; I48.91 Unspecified atrial fibrillation; E86.0 Dehydration; G47.30 Sleep apnea, unspecified; H91.90 Unspecified hearing loss, unspecified ear; I10 Essential (primary) hypertension; R00.1 Bradycardia, unspecified; M79.7 Fibromyalgia; K21.9 Gastro-esophageal reflux disease without esophagitis; M19.91 Primary osteoarthritis, unspecified site; Z98.84 Bariatric surgery status; Z86.73 Personal history of transient ischemic attack (TIA), and cerebral infarction without residual deficits; Z79.82 Long term (current) use of aspirin; Z79.02 Long term (current) use of antithrombotics/antiplatelets; Z79.4 Long term (current) use of insulin; Z79.899 Other long term (current) drug therapy
CPT/HCPCS: 36415; 70450; 71046; 80048; 80053; 81001; 82550; 82553; 83735; 84439; 84443; 84484; 85025; 85379; 85610; 85730; 93005; 93306; 93880; 96360; 96361; 99285

== ENCOUNTER → 2018-02-28 | Outpatient (CLI) | payer MEDICARE, OTHER ==
--- NOTE | 2018-02-28 15:34 | US ---
EXAMINATION TYPE: US abdomen complete DATE OF EXAM: 02/28/2018 COMPARISON: None CLINICAL HISTORY: N18.3 Chronic Kidney disease stage 3, E11.40 diabetes. Gastric sleeve x 3 years ago . No pain. Anemic. EXAM MEASUREMENTS: Liver Length: 15.7 cm Gallbladder Wall: 0.2 cm CBD: 0.8 cm CHD: 0.8 cm Spleen: 10.2 cm Right Kidney: 9.8 x 4.1 x 4.4 cm Left Kidney: 9.6 x 4.2 x 5.2 cm Pancreas: Main pancreatic ductal prominence measuring at least 2 mm Liver: wnl Gallbladder: wnl Evidence for sonographic Granados's sign: neg CBD: Dilated CHD: Dilated Spleen: wnl Right Kidney: Multiple hypoechoic renal lesions, largest lower pole = 1.6 x 1.3 x 1.5 cm Left Kidney: Renal sinus cystic appearing lesion in lower pole - 2.2 x 1.7 x 1.6 cm. Echogenic nono bstructing calculus with slight shadow - 1.0 x 0.9 cm Upper IVC: wnl Abd Aorta: wnl The liver is homogenous. The intrahepatic portion of the IVC and proximal abdominal aorta are within normal limits. There is no evidence of cholelithiasis. Common bile duct is unremarkable. The visu alized portions of the pancreas are homogenous. The spleen is unremarkable. Kidneys are symmetric a nd free of hydronephrosis. There is bilateral cortical renal atrophy. IMPRESSION: 1. Sequela of medical renal disease with bilateral renal lesions. Some do not meet criteria for cyst such as a 1.6 cm right lower pole renal lesion and smaller 5 mm renal lesion and some on the left dana ear cystic within the renal sinus. 2. Nonobstructing left lower pole solitary 1.0 cm renal calculus. 3. Dilated common bile duct and common hepatic duct and prominence of the main pancreatic duct. CT ab domen is recommended to ensure no underlying pancreatic mass.
== END ==
LOC: RADUSWWP 13:30
PROVIDERS: ATTEND Family Medicine
DX: N28.9 Disorder of kidney and ureter, unspecified (principal); N20.0 Calculus of kidney; K83.8 Other specified diseases of biliary tract; E11.22 Type 2 diabetes mellitus with diabetic chronic kidney disease; N18.3 Chronic kidney disease, stage 3 (moderate); E11.40 Type 2 diabetes mellitus with diabetic neuropathy, unspecified
CPT/HCPCS: 76700

== ENCOUNTER → 2018-02-28 | Outpatient (CLI) | payer MEDICARE, OTHER ==
[2018-02-28 15:11] LABS: Basophils % (A) 0 %; Eosinophils # (A) 0.1 k/uL (0-0.7); Eosinophils % (A) 2 %; HCT 30.5 % (34.0-46.0); HGB 9.8 gm/dL (11.4-16.0); Hypochromasia Moderate; Lymphocytes # (A) 2.1 k/uL (1.0-4.8); Lymphocytes % (A) 33 %; MCHC 32.2 g/dL (31.0-37.0); MCV 80.8 fL (80.0-100.0); Mean Platelet Volume 7.4; Monocytes # (A) 0.4 k/uL (0-1.0); Monocytes % (A) 6 %; Neutrophils # (A) 3.6 k/uL (1.3-7.7); Neutrophils % (A) 57 %; Platelet Count 182 k/uL (150-450); RBC 3.78 m/uL (3.80-5.40); RDW 14.8 % (11.5-15.5); WBC 6.3 k/uL (3.8-10.6)
[2018-02-28 17:53] LABS: Iron Saturation 8.44 (12.00-45.00)
[2018-02-28 18:06] LABS: Folate, Serum >24.0 ng/mL
== END ==
LOC: LABWHC1 14:06
PROVIDERS: ATTEND Family Medicine
DX: E11.22 Type 2 diabetes mellitus with diabetic chronic kidney disease (principal); N18.3 Chronic kidney disease, stage 3 (moderate); D50.9 Iron deficiency anemia, unspecified; R03.0 Elevated blood-pressure reading, without diagnosis of hypertension
CPT/HCPCS: 36415; 82607; 82728; 82746; 83540; 83550; 85025

== ENCOUNTER → 2018-03-14 | Outpatient (CLI) | payer MEDICARE, OTHER ==
[2018-03-14 11:57] LABS: HCT 33.4 % (34.0-46.0); HGB 9.9 gm/dL (11.4-16.0); Hypochromasia Marked; MCH 24.1 pg (25.0-35.0); MCHC 29.8 g/dL (31.0-37.0); MCV 81.1 fL (80.0-100.0); Mean Platelet Volume 6.7; Platelet Count 190 k/uL (150-450); RBC 4.11 m/uL (3.80-5.40); RDW 14.8 % (11.5-15.5); WBC 5.3 k/uL (3.8-10.6)
[2018-03-14 12:22] LABS: Albumin 3.9 g/dL (3.5-5.0); Calcium 9.3 mg/dL (8.4-10.2); Magnesium 1.5 mg/dL (1.6-2.3); Phosphorus 3.5 mg/dL (2.5-4.5); Potassium 3.8 mmol/L (3.5-5.1); Total Bilirubin 0.2 mg/dL (0.2-1.3); Total Protein 6.7 g/dL (6.3-8.2)
[2018-03-14 12:31] LABS: Partial Thromboplastin Time 25.1 sec (22.0-30.0); Prothrombin Time 10.4 sec (9.0-12.0)
[2018-03-14 17:32] LABS: Parathyroid Hormone Intact 47.6 pg/mL (14.0-72.0)
[2018-03-14 18:18] LABS: Hemoglobin A1C 6.1 % (4.0-6.0)
[2018-03-14 18:21] LABS: Vitamin D 25 Hydroxy 50.6 ng/mL (30.0-100.0)
[2018-03-14 18:26] LABS: Folate, Serum 23.9 ng/mL; Iron Saturation 7.11 (12.00-45.00)
[2018-03-15 15:16] LABS: Zinc, Serum 65 ug/dL (60-130)
[2018-03-16 06:42] LABS: Vitamin B1 82 ug/L (38-122)
[2018-03-16 07:22] LABS: Vitamin A 50 ug/dL (38-106)
== END ==
LOC: LABPAT 10:47
PROVIDERS: ATTEND Surgery Plastic and Reconstructive Surgery
DX: E66.01 Morbid (severe) obesity due to excess calories (principal); D64.9 Anemia, unspecified; E21.1 Secondary hyperparathyroidism, not elsewhere classified; E89.1 Postprocedural hypoinsulinemia; D50.8 Other iron deficiency anemias; K90.89 Other intestinal malabsorption; E44.0 Moderate protein-calorie malnutrition; E55.9 Vitamin D deficiency, unspecified; K74.1 Hepatic sclerosis; N19 Unspecified kidney failure; K50.90 Crohn's disease, unspecified, without complications
CPT/HCPCS: 80053; 80061; 82306; 82525; 82607; 82728; 82746; 83036; 83540; 83550; 83735; 83970; 84100; 84134; 84255; 84425; 84443; 84590; 84630; 85027; 85610; 85730

== ENCOUNTER 2018-03-21 10:50 | Day surgery (SDC) | payer MEDICARE, OTHER ==
[2018-03-17 14:16] VITALS: BMI 27.7
--- NOTE | 2018-03-20 17:09 | P.GSHP ---
History of Present Illness H&P Date: 03/21/18 CHIEF COMPLAINT: GERD and colon screen HISTORY OF PRESENT ILLNESS: The patient is a 67-year-old female who presents with gastroesophageal reflux disease and need for colon screen. Upper and lower endoscopy were offered for further evaluation and management. PAST MEDICAL HISTORY: Please see list. PAST SURGICAL HISTORY: Please see list. MEDICATIONS: Please see list. ALLERGIES: Please see list. SOCIAL HISTORY: No illicit drug use FAMILY HISTORY: No reports of Crohn disease or ulcerative colitis. REVIEW OF ORGAN SYSTEMS: CONSTITUTIONAL: No reports of fevers or chills. GI: Denies any blood in stools or constipation. PHYSICAL EXAM: VITAL SIGNS: Stable GENERAL: Well-developed pleasant in no acute distress. HEENT: No scleral icterus. Extraocular movements grossly intact. Moist buccal mucosa. NECK: Supple without lymphadenopathy. CHEST: Unlabored respirations. Equal bilateral excursions. CARDIOVASCULAR: Regular rate and rhythm. Distal 2+ pulses. ABDOMEN: Soft, nondistended. MUSCULOSKELETAL: No clubbing, cyanosis, or edema. ASSESSMENT: 1. Gastroesophageal reflux disease 2. Colon screen. PLAN: 1. Recommend proceeding with an upper and lower endoscopy Past Medical History Past Medical History: CVA/TIA, Diabetes Mellitus, Eye Disorder, Fibromyalgia, GERD/Reflux, Hearing Disorder / Deafness, Hyperlipidemia, Osteoarthritis (OA), Sleep Apnea/CPAP/BIPAP Additional Past Medical History / Comment(s): Hx; TIA 1997, NEUROPATHY ARABELLA HANDS History of Any Multi-Drug Resistant Organisms: None Reported Past Surgical History: Back Surgery, Bariatric Surgery, Section, Orthopedic Surgery Additional Past Surgical History / Comment(s): Laparoscopic sleeve gastrectomy. right Knee arthroscopy, EGD, 3 C-Sections; Cataracts Past Anesthesia/Blood Transfusion Reactions: No Reported Reaction Smoking Status: Former smoker - Past Family History Father Family Medical History: Myocardial Infarction ([place]) Mother Family Medical History: No Reported History Medications and Allergies Home Medications Medication Instructions Recorded Confirmed Type Omeprazole [PriLOSEC] 20 mg PO BID 10/04/14 03/17/18 History ALPRAZolam [Xanax] 0.5 mg PO BID PRN 06/02/17 03/17/18 History Aspirin 81 mg PO DAILY 06/02/17 03/17/18 History Citalopram Hydrobromide [CeleXA] 40 mg PO HS 06/02/17 03/17/18 History Clopidogrel [Plavix] 75 mg PO DAILY 06/02/17 03/17/18 History Rosuvastatin [Crestor] 20 mg PO DAILY 06/02/17 03/17/18 History Empagliflozin [Jardiance] 25 mg PO DAILY 03/17/18 03/17/18 History Ferrous Sulfate [Feosol] 325 mg PO DAILY 03/17/18 03/17/18 History Pregabalin [Lyrica] 150 mg PO BID 03/17/18 03/17/18 History Allergies Allergy/AdvReac Type Severity Reaction Status Date / Time No Known Allergies Allergy Verified 03/17/18 14:06
[~2018-03-21 10:50] MED LIST: LACTATED RINGERS 1,000 ML IV SCH
[2018-03-21 11:12] VITALS: TEMP 98.6
[2018-03-21] MEDS ORDERED: LIDOCAINE 1% 20 ML VIAL (10MG/ML) FOR IV START INTRADERMA ONE (11:12)
[2018-03-21 11:14] LABS: Glucose,Whole Blood 81 mg/dL (75-99)
[2018-03-21] MEDS ORDERED: PROPOFOL 10 MG/ML 20 ML VIAL IV ONE (12:05)
--- NOTE | 2018-03-21 12:22 | P.PCN ---
Date of Procedure: 03/21/18 Description of Procedure: PREOPERATIVE DIAGNOSIS: Colonoscopy screening. POSTOPERATIVE DIAGNOSIS: Colonoscopy screening. External hemorrhoids, grade 2 OPERATION: Colonoscopy to the ileocecal valve and appendiceal orifice. SURGEON: Dilia Medina MD. ANESTHESIA: MAC. INDICATIONS: The patient is a 67-year-old female who presents for her first colonoscopy screening. Benefits and risks were described and informed consent was obtained. DESCRIPTION OF PROCEDURE: The patient had undergone Gatorade, MiraLAX and Dulcolax prep. She had been brought into the operating room and laid in the left lateral decubitus position. After adequate intravenous sedation, the rectum was examined with 2% lidocaine jelly. External hemorrhoids were encountered. The rectal tone was within normal limits. No lesions were palpated in the rectal vault. An Olympus colonoscope was advanced until the ileocecal valve and appendiceal orifice were clearly viewed. The prep was excellent with clear visualization of the mucosal folds. The scope was removed with visualization of each mucosal fold. No scattered diverticulosis was encountered. No colonic polyps were found. No evidence of focal colitis was found. Retroflexion of the scope demonstrated no grade 1 internal hemorrhoids. The colon was desufflated. The patient had tolerated the procedure well. Withdrawal time was over 6 minutes. FINDINGS: No internal hemorrhoids, grade 1 No external prolapsed hemorrhoids. No arteriovenous malformations. No adenomatous polyps. No focal colitis. RECOMMENDATIONS: Lower endoscopy in 10 years, 2027 per screening guidelines Plan - Discharge Summary New Discharge Prescriptions: No Action Omeprazole [PriLOSEC] 20 mg PO BID ALPRAZolam [Xanax] 0.5 mg PO BID PRN PRN Reason: Anxiety Aspirin 81 mg PO DAILY Citalopram Hydrobromide [CeleXA] 40 mg PO HS Clopidogrel [Plavix] 75 mg PO DAILY Rosuvastatin [Crestor] 20 mg PO DAILY Empagliflozin [Jardiance] 25 mg PO DAILY Pregabalin [Lyrica] 150 mg PO BID Ferrous Sulfate [Feosol] 325 mg PO DAILY Discharge Medication List Omeprazole [PriLOSEC] 20 mg PO BID 10/04/14 [History] ALPRAZolam [Xanax] 0.5 mg PO BID PRN 06/02/17 [History] Aspirin 81 mg PO DAILY 06/02/17 [History] Citalopram Hydrobromide [CeleXA] 40 mg PO HS 06/02/17 [History] Clopidogrel [Plavix] 75 mg PO DAILY 06/02/17 [History] Rosuvastatin [Crestor] 20 mg PO DAILY 06/02/17 [History] Empagliflozin [Jardiance] 25 mg PO DAILY 03/17/18 [History] Ferrous Sulfate [Feosol] 325 mg PO DAILY 03/17/18 [History] Pregabalin [Lyrica] 150 mg PO BID 03/17/18 [History]
--- NOTE | 2018-03-21 12:27 | P.PCN ---
Date of Procedure: 03/21/18 Description of Procedure: PREOPERATIVE DIAGNOSIS: Status post sleeve gastrectomy. Gastroesophageal reflux disease. Epigastric abdominal pain. POSTOPERATIVE DIAGNOSIS: Status post sleeve gastrectomy. Gastroesophageal reflux disease. Epigastric abdominal pain. OPERATION: Esophagogastroduodenoscopy with cold forceps biopsies along the antrum. SURGEON: Dilia Medina MD ANESTHESIA: MAC. INDICATIONS: The patient is a 67-year-old female who presents with a history of sleeve gastrectomy with abdominal pain. Benefits and risks of the procedure were described. Informed consent was obtained. DESCRIPTION: The patient was brought into the endoscopy suite and laid in the left lateral decubitus position. An Olympus gastroscope was passed along the posterior oropharynx down to the distal esophagus where the squamocolumnar junction was at 36 centimeters and unremarkable. The diaphragmatic hiatus was found at 36 cm. The sleeve reservoir was appropriately small and within normal limits. Chronic gastritis albeit mild was found along the antrum with cold biopsies obtained. The first through third portion of the duodenum was examined and unremarkable. The stomach was desufflated. The patient tolerated the procedure well. FINDINGS: No acute ulceration found along her sleeve. No corkscrewing sleeve gastrectomy. Squamocolumnar junction at 36 cm from the incisors. Diaphragmatic hiatus at 36 cm. Gastric reservoir within normal limits No LA grade A erosive esophagitis. No active duodenitis. Chronic gastritis. RECOMMENDATIONS: Upper endoscopy as needed.
[2018-03-21 12:42] VITALS: BP 171/73; PULSE 60; RESP 18
== END 2018-03-21 13:08 | disposition home or self-care (01) ==
LOC: ORWHC2ENDO 10:50
PROVIDERS: ATTEND Surgery Plastic and Reconstructive Surgery
DX: K21.9 Gastro-esophageal reflux disease without esophagitis (principal); Z12.11 Encounter for screening for malignant neoplasm of colon; K29.50 Unspecified chronic gastritis without bleeding; Z98.84 Bariatric surgery status; K64.1 Second degree hemorrhoids; E78.5 Hyperlipidemia, unspecified; E11.40 Type 2 diabetes mellitus with diabetic neuropathy, unspecified; F41.9 Anxiety disorder, unspecified; Z86.73 Personal history of transient ischemic attack (TIA), and cerebral infarction without residual deficits; Z79.84 Long term (current) use of oral hypoglycemic drugs; Z79.82 Long term (current) use of aspirin; Z79.02 Long term (current) use of antithrombotics/antiplatelets; Z79.899 Other long term (current) drug therapy
CPT/HCPCS: 88305; 43239; J2704; G0121

== ENCOUNTER → 2018-06-08 | Outpatient (CLI) | payer MEDICARE, OTHER ==
--- NOTE | 2018-06-08 15:42 | BD ---
EXAMINATION TYPE: Axial Bone Density DATE OF EXAM: 06/08/2018 COMPARISON: NONE CLINICAL HISTORY: post menopausal Height: 4'11 Weight: 146 FRAX RISK QUESTIONS: Family History (Parent hip fracture): y History of Fracture in Adulthood: y Secondary Osteoporosis: RISK FACTORS HISTORY OF: Surgery to Spine/): l sp When: 2003 Family History of Osteoporosis: y Postmenopausal woman: y MEDICATIONS: Additional Medications: depression, bi polar, type 2 diabetes, cholesterol Additional History: EXAM MEASUREMENTS: Bone mineral densitometry was performed using the [employer] (TMG) System. Bone mineral density about the R hip (g/cm2): 0.848 Bone mineral density about the L hip (g/cm2): 0.838 T Score values are as follows: -----R Neck: -2.1 -----L Neck: -2.6 -----R Total: -1.3 -----L Total: -1.4 Bone mineral density about the L Wrist (g/cm2): 0.564 T Score values are as follows: -----Dist. R+U: -1.5 -----Prox. R+U: -1.3 -----Radius total: -1.8 IMPRESSION: Osteoporosis (T Score less than -2.5) femoral neck level in left hip. There is increased fracture risk and therapy is usually indicated based on age. Re-Screen 1-2 years. NOTE: T-SCORE=SD OF THE YOUNG ADULT MEAN.
--- NOTE | 2018-06-10 09:33 | MM ---
Reason for exam: screening (asymptomatic). Last mammogram was performed 2 years ago. History: Patient is postmenopausal. Taking estrogen for 2 months beginning at age 61. Taking progesterone for 2 months beginning at age 61. Physical Findings: A clinical breast exam by your physician is recommended on an annual basis and results should be correlated with mammographic findings. MG Screening Mammo w CAD Bilateral CC and MLO view(s) were taken. Prior study comparison: May 28, 2016, bilateral MG screening mammo w CAD. January 18, 2012, bilateral digital screening mammo w/CAD. There are scattered fibroglandular densities. Benign appearing bilateral calcifications. No suspicious abnormality. ASSESSMENT: Benign, BI-RAD 2 RECOMMENDATION: Routine screening mammogram of both breasts in 1 year.
== END | disposition home or self-care (01) ==
LOC: RADMAMWWP 14:31
PROVIDERS: ATTEND Family Medicine
DX: Z12.31 Encounter for screening mammogram for malignant neoplasm of breast (principal); M81.0 Age-related osteoporosis without current pathological fracture; Z78.0 Asymptomatic menopausal state
CPT/HCPCS: 77067; 77080

== ENCOUNTER → 2018-07-06 | Outpatient (CLI) | payer MEDICARE, OTHER ==
[2018-07-06 16:20] VITALS: RESP 16; BMI 29.7
--- NOTE | 2018-07-06 17:11 | P.PN ---
Subjective Progress Note Date: 07/06/18 HPI: She comes in with abdominal pain at the epigastrium. She has anemia. She reports it was sharp pain. She ate sloopy rocío. ABDOMEN: Epigastrium. ASSESSMENT: 1. Anemia 2. Epigastic pain 3. Family history of gallbladder diseas in mother, sister PLAN: 1. US of gallbladder. 2. Iron infusion prior to any surgery 3. Can Maker evaluation. 4. Recommend food diary journal. 5. Robotic cholecystectomy described. 6. Cardiac risk assessment prior to surgery. Objective - Vital Signs Vital signs: Vital Signs Temp Pulse Resp 16 07/06/18 16:17 BP Pulse Ox Intake & Output 07/05/18 07/06/18 07/06/18 18:59 06:59 18:59 Weight 66.678 kg
[2018-07-06 17:49] VITALS: BP 101/98; PULSE 69; TEMP 98
== END | disposition home or self-care (01) ==
LOC: BARWHC3 15:02
PROVIDERS: ATTEND Surgery Plastic and Reconstructive Surgery
DX: R10.13 Epigastric pain (principal); D64.9 Anemia, unspecified; Z83.79 Family history of other diseases of the digestive system
CPT/HCPCS: 99211

== ENCOUNTER → 2018-08-04 | Outpatient (CLI) | payer MEDICARE, OTHER ==
--- NOTE | 2018-08-04 10:42 | US ---
EXAMINATION TYPE: US abdomen limited DATE OF EXAM: 08/04/2018 COMPARISON: US CLINICAL HISTORY: R10.11 right upper quadrant abdominal pain. Pt states RUQ pain EXAM MEASUREMENTS: Liver Length: 15.1 cm Gallbladder Wall: 0.1 cm CBD: 0.7 cm proximal, 0.8 cm distal Right Kidney: 10.1 x 4.1 x 4.5 cm Pancreas: wnl Liver: Liver is slightly heterogenous as there is diminished visualization of the portal triads. Gallbladder: wnl Evidence for sonographic Granados's sign: No CBD: Mildly dilated for pt's age Right Kidney: Cyst lower pole= 1.7 x 1.5 x 1.4 cm IMPRESSION: 1. There is persistent extrahepatic biliary ductal dilatation is seen on the prior ultrasound of 02/04. Again CT abdomen with contrast is recommended to ensure no underlying pancreatic mass is panc reatic ductal dilatation was better demonstrated on the prior exam of 2018. 2. Simple appearing 1.7 cm right renal cyst. 3. Mildly heterogenous hepatic echotexture most commonly related to hepatic steatosis. Correlate with liver function
== END | disposition home or self-care (01) ==
LOC: RADUSWWP 09:20
PROVIDERS: ATTEND Surgery Plastic and Reconstructive Surgery
DX: N28.1 Cyst of kidney, acquired (principal); K76.0 Fatty (change of) liver, not elsewhere classified
CPT/HCPCS: 76705

== ENCOUNTER → 2018-08-08 | Outpatient (CLI) | payer MEDICARE, OTHER ==
--- NOTE | 2018-08-08 09:16 | NM ---
EXAMINATION TYPE: NM hepatobiliary w EF DATE OF EXAM: 08/08/2018 COMPARISON: NONE HISTORY: Right upper quadrant pain TECHNIQUE: After the intravenous administration of 5.05 mCi Tc 99m Mebrofenin hepatobiliary scintigra phy is performed. Immediate images post injection. FINDINGS: There is satisfactory initial accumulation of tracer by the liver. The gallbladder is visualized wit hin 16 minutes. The small bowel activity is noted within 48 minutes. At one hour 8 ounces of oral e nsure plus is given to mimic CCK and gallbladder ejection fraction is calculated at 93%. IMPRESSION: 1. Elevated ejection fraction may reflect hypercontractile state.
== END | disposition home or self-care (01) ==
LOC: RADNMMAIN 06:30
PROVIDERS: ATTEND Surgery Plastic and Reconstructive Surgery
DX: R10.11 Right upper quadrant pain (principal)
CPT/HCPCS: 78226; A9537

== ENCOUNTER 2018-08-20 16:26 | Emergency (ER) | payer MEDICARE, OTHER ==
[2018-08-20 16:47] VITALS: RESP 18
--- NOTE | 2018-08-20 17:20 | ED ---
General Adult HPI - General Chief complaint: Extremity Injury, Lower Stated complaint: Fall Source: patient, family, RN notes reviewed, old records reviewed Mode of arrival: wheelchair Limitations: physical limitation - History of Present Illness Initial comments: Chief complaint history of present illness this is a 68-year-old female here with a complaint of having fallen twice in the past month. One month ago while walking to her home she tripped and fell injuring her right hip area. It is hurt since then. Yesterday she was getting on a swing with her mother when she fell backwards landing on an iron pipe of some sort injuring her right side of the pelvis and lumbar spine area. No numbness no tingling. No open wounds. No other injuries. No head or neck injuries. - Related Data Home Medications Medication Instructions Recorded Confirmed Omeprazole [PriLOSEC] 20 mg PO BID 10/04/14 07/19/18 ALPRAZolam [Xanax] 0.5 mg PO BID PRN 06/02/17 07/19/18 Aspirin 81 mg PO DAILY 06/02/17 07/19/18 Citalopram Hydrobromide [CeleXA] 40 mg PO HS 06/02/17 07/19/18 Clopidogrel [Plavix] 75 mg PO DAILY 06/02/17 07/19/18 Rosuvastatin [Crestor] 20 mg PO DAILY 06/02/17 07/19/18 Empagliflozin [Jardiance] 25 mg PO DAILY 03/17/18 07/19/18 Ferrous Sulfate [Feosol] 325 mg PO DAILY 03/17/18 07/19/18 Pregabalin [Lyrica] 150 mg PO BID 03/17/18 07/19/18 Cholecalciferol (Vitamin D3) 2,000 unit PO DAILY 07/19/18 07/19/18 [Vitamin D3] Previous Rx's Medication Instructions Recorded traMADol HCl [Ultram] 50 mg PO Q6HR PRN 3 Days #12 tab 08/20/18 Allergies Allergy/AdvReac Type Severity Reaction Status Date / Time No Known Allergies Allergy Verified 08/20/18 16:41 Review of Systems ROS Statement: Those systems with pertinent positive or pertinent negative responses have been documented in the HPI. 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 Also patient is to have diabetes and take medications but after having had bariatric surgery son diet controlled type diabetes now. Patient's also had a history of fibromyalgia, GERD, hyperlipidemia and osteoarthritis. Also bilateral hand and neuropathy treated with Lyrica with good results. Her surgeries include back surgery, 3 years ago bariatric surgery, , low back surgery as noted above the patient's family history significant for mother's side having cancers of the brain, lung and full. She denies any ALLERGIES. She quit smoking 17 years ago denies alcohol use. ROS Other: All systems not noted in ROS Statement are negative. Past Medical History Past Medical History: CVA/TIA, Diabetes Mellitus, Eye Disorder, Fibromyalgia, GERD/Reflux, Hearing Disorder / Deafness, Hyperlipidemia, Osteoarthritis (OA), Sleep Apnea/CPAP/BIPAP Additional Past Medical History / Comment(s): Hx; TIA 1997, NEUROPATHY ARABELLA HANDS History of Any Multi-Drug Resistant Organisms: None Reported Past Surgical History: Back Surgery, Bariatric Surgery, Section, Orthopedic Surgery Additional Past Surgical History / Comment(s): Laparoscopic sleeve gastrectomy. right Knee arthroscopy, EGD, 3 C-Sections; Cataracts Past Anesthesia/Blood Transfusion Reactions: No Reported Reaction Past Psychological History: Bipolar Smoking Status: Former smoker Past Alcohol Use History: None Reported Past Drug Use History: None Reported - Past Family History Father Family Medical History: Myocardial Infarction ([place]) Mother Family Medical History: No Reported History General Exam - General Exam Comments Initial Comments: General: The patient is awake and alert, here with a chief complaint of pain to the right hip right lower lumbar area. Vital signs show temperature 98.5 pulse 72 respiratory rate 18 pulse ox 97% room air blood pressure 161/124 this be remeasured. Eye: Pupils are equal, round and reactive to light, extra-ocular movements are intact; there is normal conjunctiva bilaterally. No signs of icterus. Ears, nose, mouth and throat: There are moist mucous membranes and no oral lesions. Neck: The neck is supple, there is no tenderness. Cardiovascular: There is a regular rate and rhythm. No murmur, rub or gallop is appreciated. Respiratory: Lungs are clear to auscultation, respirations are non-labored, breath sounds are equal. No wheezes, stridor, rales, or rhonchi. Gastrointestinal: Soft, non-distended, non-tender abdomen without masses or organomegaly noted. There is no rebound or guarding present. No CVA tenderness. Bowel sounds are unremarkable. Back: Mild tenderness right lower back and buttock area Musculoskeletal: Near normal range of motion but with discomfort to the right hip area. Neurovascular status to the feet intact. Neurological: No focal or lateralizing findings Skin: Skin is warm and dry and no rashes or lesions are noted. Limitations: physical limitation Course Vital Signs 08/20/18 16:39 Temperature 98.5 F Pulse Rate 72 Respiratory 18 Rate Blood Pressure 161/124 O2 Sat by Pulse 97 Oximetry Medical Decision Making - Medical Decision Making Rectal decision making; this is a 68-year-old female who has fallen twice in the past month. Most recently yesterday. X-rays were done and reviewed by radiologist x-rays of lumbar spine were done and reviewed by radiologist final impression is no acute fracture or new malalignment is seen in the lumbar spine. Minimal degenerative changes of the lumbar spine are very mild chronic grade 1 anterolisthesis of L5 on S1. As reported by Dr. Cintron X-ray of the hip and pelvis right hip showed no acute fracture or dislocation. Patient be placed on tramadol, 12 tablets 1 every 6 when necessary for pain. Gentle range of motion. Follow-up family physician. Disposition Clinical Impression: Contusion of thigh Disposition: HOME SELF-CARE Condition: Good Instructions (If sedation given, give patient instructions): Contusion in Adults (ED) Additional Instructions: Apply ice to area of discomfort. Gentle range of motion. Try Tylenol if not strong enough use provided tramadol. Prescriptions: traMADol HCl [Ultram] 50 mg PO Q6HR PRN 3 Days #12 tab PRN Reason: Pain Is patient prescribed a controlled substance at d/c from ED?: Yes When asked, does pt state using other controlled substances?: No If prescribed controlled substance>3 days was MAPS reviewed?: No If opioid is for acute pain is fill amount 7 days or less?: Yes If Rx opioid, was Start Talking consent form obtained?: Yes Referrals: Chester Ruggiero MD [Primary Care Provider] - 1-2 days Time of Disposition: 18:05
--- NOTE | 2018-08-20 17:28 | XR ---
EXAMINATION TYPE: XR Hip RT and AP Pelvis DATE OF EXAM: 08/20/2018 COMPARISON: NONE HISTORY: Low back pain and right hip pain after fall TECHNIQUE: A single AP view of the pelvis is obtained. Two views of the right hip are obtained. FINDINGS: There is no acute fracture/dislocation evident in the pelvis. The hip and sacroiliac join ts appear symmetric with mild degenerative change. The overlying soft tissue appears unremarkable. A therosclerosis is incidentally noted of the femoral artery, mild in degree. Two views of right hip show no acute fracture or dislocation. No focal lytic or sclerotic lesion see n in the proximal right femur. The overlying soft tissue is unremarkable. IMPRESSION: There is no acute fracture or dislocation in the pelvis or right hip.
--- NOTE | 2018-08-20 17:30 | XR ---
EXAMINATION TYPE: XR lumbosacral spine min 4V DATE OF EXAM: 08/20/2018 CLINICAL HISTORY: Back pain after fall TECHNIQUE: Frontal and lateral views of the lumbar spine were obtained COMPARISON: 03/06/2015 FINDINGS: There are 5 lumbar type vertebral bodies identified. There is grade 1 anterolisthesis of and L5 on S1, subtly seen on the prior, very mild in degree The remainder of the lumbar spine shows s atisfactory alignment without evidence of acute fracture or dislocation. Vertebral body heights are w ithin normal limits. Small anterior osteophytes are seen of the lumbar spine Surgical sutures are pre sent within the left mid abdomen. The overlying soft tissue appears unremarkable. IMPRESSION: No acute fracture or new malalignment is seen in the lumbar spine. Minimal degenerative changes of the lumbar spine and very mild chronic grade 1 anterolisthesis of L5 on S1.
[2018-08-20] MEDS ORDERED: traMADol 50 MG STARTER PACK 3 TAB BTL PO STA (18:02)
[2018-08-20 18:42] VITALS: BP 175/92; PULSE 77; TEMP 98.2
== END 2018-08-20 18:25 | disposition home or self-care (01) ==
LOC: EC 16:26
DX: S70.11XA Contusion of right thigh, initial encounter (principal); E11.40 Type 2 diabetes mellitus with diabetic neuropathy, unspecified; M79.7 Fibromyalgia; G47.30 Sleep apnea, unspecified; E78.5 Hyperlipidemia, unspecified; K21.9 Gastro-esophageal reflux disease without esophagitis; F31.9 Bipolar disorder, unspecified; Z79.82 Long term (current) use of aspirin; Z79.02 Long term (current) use of antithrombotics/antiplatelets; Z79.899 Other long term (current) drug therapy; Z87.891 Personal history of nicotine dependence; Z86.73 Personal history of transient ischemic attack (TIA), and cerebral infarction without residual deficits; Z98.84 Bariatric surgery status; W01.0XXA Fall on same level from slipping, tripping and stumbling without subsequent striking against object, initial encounter; Y93.01 Activity, walking, marching and hiking; Y92.009 Unspecified place in unspecified non-institutional (private) residence as the place of occurrence of the external cause
CPT/HCPCS: 72110; 73502; 99284

== ENCOUNTER 2018-10-14 06:16 | Day surgery (SDC) | payer MEDICARE, OTHER ==
[2018-10-13 08:52] VITALS: BMI 29.7
--- NOTE | 2018-10-13 20:52 | P.GSHP ---
History of Present Illness H&P Date: 10/14/18 CHIEF COMPLAINT: Cholecystitis HISTORY OF PRESENT ILLNESS: The patient is a 68-year-old female who presents with history of epigastric including right upper quadrant abdominal pain. She underwent diagnostic studies for her gallbladder. Separately her clinical picture was consistent with cholecystitis. Now she presents for surgical intervention. PAST MEDICAL HISTORY: Please see list PAST SURGICAL HISTORY: Please see list MEDICATIONS: Please see list ALLERGIES: Denies. SOCIAL HISTORY: No illicit drug use or recent tobacco use FAMILY HISTORY: Pertinent for gallbladder disease REVIEW OF ORGAN SYSTEMS: Additionally reports: GI: Denies any blood in stools. Colonoscopy more than 10 years ago. CONSTITUTIONAL: No fevers or chills. HEENT: Denies any trouble with vision, hearing or nosebleeds. No difficulty swallowing. LYMPHATIC: The patient denies any lumps and bumps around the neck. ENDOCRINE: Denies any thyroid disorders. Has blood sugar glucose intolerance. RESPIRATORY: Denies pneumonia. Denies any troubles with breathing or dyspnea on exertion. Has hypertension. CARDIOVASCULAR: Denies any chest pain, palpitations, or recent heart attacks. GASTROINTESTINAL: Denies fatty food intolerance. Denies change in bowel habits and gas bloat. Has GERD. GENITOURINARY: Denies any blood in urine or increased urinary frequency. MUSCULOSKELETAL: Denies any back pain, stiffness or joint arthritis. NEUROLOGIC: Denies any numbness or tingling along the distal extremities. No s eizure disorders or headaches. Has fibromyalgia. PSYCHIATRIC: Has depression. No suicidal ideation. Has anxiety. HEMATOLOGIC: Denies any abnormal bleeding or bruising. BREASTS: Denies any breast lumps, pain or nipple discharge. SKIN: No current skin cancer. No rash. PHYSICAL EXAM: VITAL SIGNS: Afebrile vital signs stable GENERAL: Well-developed pleasant in no acute distress. HEENT: No scleral icterus. Extraocular movements grossly intact. Moist buccal mucosa. NECK: Supple without lymphadenopathy. CHEST: Unlabored respirations. Equal bilateral excursions. CARDIOVASCULAR: Regular rate regular rhythm rhythm. Distal 2+ pulses. ABDOMEN: Soft, nondistended. Tender along the epigastrium and right upper quadrant. MUSCULOSKELETAL: No clubbing, cyanosis, or edema. NEURO: Cranial nerves II to XII within normal limits. No focal or lateralizing signs. PSYCH: Alert and oriented to person, place and time. SKIN: Well-perfused good skin turgor. ASSESSMENT: 1. Epigastric and right upper quadrant abdominal pain 2. Chronic cholecystitis 3. Symptomatic gallstones. PLAN: 1. Will need a robotic cholecystectomy possible open. Benefits and risks were described. 2. Heparin for DVT prophylaxis 5000 units. 3. Antibiotic prophylaxis. Past Medical History Past Medical History: CVA/TIA, Diabetes Mellitus, Fibromyalgia, GERD/Reflux, Hyperlipidemia, Sleep Apnea/CPAP/BIPAP Additional Past Medical History / Comment(s): Hx; TIA 1997, NEUROPATHY ARABELLA HANDS History of Any Multi-Drug Resistant Organisms: None Reported Past Surgical History: Back Surgery, Bariatric Surgery, Section, Orthopedic Surgery Additional Past Surgical History / Comment(s): Laparoscopic sleeve gastrectomy. right Knee arthroscopy, EGD, 3 C-Sections; Cataracts surgery Past Anesthesia/Blood Transfusion Reactions: No Reported Reaction Smoking Status: Former smoker - Past Family History Father Family Medical History: Deep Vein Thrombosis (DVT), Myocardial Infarction ([place]) Additional Family Medical History / Comment(s): dvt leg Mother Family Medical History: No Reported History Medications and Allergies Home Medications Medication Instructions Recorded Confirmed Type Omeprazole [PriLOSEC] 20 mg PO BID 10/04/14 10/13/18 History ALPRAZolam [Xanax] 0.5 mg PO BID PRN 06/02/17 10/13/18 History Citalopram Hydrobromide [CeleXA] 40 mg PO HS 06/02/17 10/13/18 History Clopidogrel [Plavix] 75 mg PO DAILY 06/02/17 10/13/18 History Empagliflozin [Jardiance] 25 mg PO DAILY 03/17/18 10/13/18 History Pregabalin [Lyrica] 150 mg PO BID 03/17/18 10/13/18 History Cholecalciferol (Vitamin D3) 2,000 unit PO DAILY 07/19/18 10/13/18 History [Vitamin D3] Cariprazine HCl [Vraylar] 4.5 mg PO DAILY 10/13/18 10/13/18 History metFORMIN HCL [Glucophage] 500 mg PO BID 10/13/18 10/13/18 History Allergies Allergy/AdvReac Type Severity Reaction Status Date / Time No Known Allergies Allergy Verified 10/13/18 08:08
[~2018-10-14 06:16] MED LIST changes: +DEXAMETHASONE SOD PHOSPHATE 10 MG/ML 1 ML VIAL IV ONE; +HEPARIN SODIUM,PORCINE 5,000 UNIT/ML 1 ML VIAL SQ ONE; +HYDROmorphone 0.5 MG/0.5 ML SYRINGE IVP PRN; +INDOCYANINE GREEN 25 MG VIAL IV STA; +MIDAZOLAM 2 MG/2 ML VIAL IV PRN; +ONDANSETRON 4 MG/2 ML VIAL IVP ONE; +ceFAZolin IN SWFI 2 GM/20 ML SYRINGE IVP ONE
[2018-10-14 06:38] VITALS: TEMP 98.3
[2018-10-14 07:01] LABS: Basophils % (A) 1 %; Eosinophils # (A) 0.1 k/uL (0-0.7); Eosinophils % (A) 2 %; HGB 12.1 gm/dL (11.4-16.0); Lymphocytes # (A) 1.7 k/uL (1.0-4.8); Lymphocytes % (A) 33 %; MCHC 32.7 g/dL (31.0-37.0); MCV 88.8 fL (80.0-100.0); Mean Platelet Volume 6.4; Monocytes # (A) 0.3 k/uL (0-1.0); Monocytes % (A) 6 %; Neutrophils % (A) 58 %; Platelet Count 298 k/uL (150-450); RBC 4.17 m/uL (3.80-5.40); RDW 13.9 % (11.5-15.5); WBC 5.2 k/uL (3.8-10.6)
[2018-10-14] MEDS ORDERED: LIDOCAINE 1% 20 ML VIAL (10MG/ML) FOR IV START INTRADERMA ONE (07:02)
[2018-10-14 07:04] LABS: Glucose,Whole Blood 107 mg/dL (75-99)
[2018-10-14 07:10] LABS: Albumin 3.6 g/dL (3.5-5.0); Calcium 9.2 mg/dL (8.4-10.2); Total Bilirubin 0.3 mg/dL (0.2-1.3); Total Protein 6.6 g/dL (6.3-8.2)
[2018-10-14] MEDS ORDERED: fentaNYL (PF) 50 MCG/ML 2 ML AMP ONE (07:30)
[2018-10-14] MEDS ORDERED: ePHEDrine SULFATE/0.9% NACL/PF 50 MG/5 ML SYRINGE IV ONE (07:30)
[2018-10-14] MEDS ORDERED: INDOCYANINE GREEN 25 MG VIAL IV ONE (07:30)
[2018-10-14] MEDS ORDERED: PROPOFOL 10 MG/ML 20 ML VIAL IV ONE (07:30)
[2018-10-14] MEDS ORDERED: MIDAZOLAM 2 MG/2 ML VIAL ONE (07:30)
[2018-10-14] MEDS ORDERED: NEOSTIGMINE 1 MG/ML 10 ML VIAL ONE (07:30)
[2018-10-14] MEDS ORDERED: GLYCOPYRROLATE 0.2 MG/ML 2 ML VIAL ONE (07:30)
[2018-10-14] MEDS ORDERED: LIDOCAINE 1% INJ 10MG/ML (20 ML MDV) ONE (07:30)
[2018-10-14] MEDS ORDERED: ROCURONIUM BROMIDE 10 MG/ML 10 ML VIAL IV ONE (07:30)
[2018-10-14] MEDS ORDERED: BUPIVACAINE (PF) 0.25% 30 ML VIAL SQ ONE (08:08)
[2018-10-14] MEDS ORDERED: LACTATED RINGERS 1,000 ML IV ONE (08:20)
--- NOTE | 2018-10-14 08:57 | P.OP ---
Date of Procedure: 10/14/18 Description of Procedure: SURGEON: LYNN TIAN MD PREOPERATIVE DIAGNOSES: 1. Right upper quadrant abdominal pain 2. Chronic cholecystitis 3. History of sleeve gastrectomy, bariatric procedure 4. Fibromyalgia 5. 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 Generalized anxiety disorder 7. Depressive disorder 8. Obstructive sleep apnea 9. History of prior transient ischemic attack 10. Hyperlipidemia POSTOPERATIVE DIAGNOSES: 1. Right upper quadrant abdominal pain 2. Chronic cholecystitis 3. History of sleeve gastrectomy, bariatric procedure 4. Fibromyalgia 5. 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 Generalized anxiety disorder 7. Depressive disorder 8. Obstructive sleep apnea 9. History of prior transient ischemic attack 10. Hyperlipidemia OPERATION: Robotic-assisted da Elida Xi laparoscopic cholecystectomy, multiport with FIREFLY ESTIMATED BLOOD LOSS: 10 mL. SPECIMENS REMOVED: Gallbladder. COMPLICATIONS: None. OPERATIVE FINDINGS: 1. Chronic cholecystitis 2. Moderate highly elastic tissue 3. Console time 14 minutes INDICATIONS: The patient is a 68-year-old female who presents with cholelcystitis. Surgical intervention with a laparoscopic cholecystectomy was described at length including injury to the biliary tree, bleeding, infection, need for further surgery. Informed consent was obtained. Robotic assisted laparoscopic approach was described. Benefits and risks of the procedure including but not limited to bleeding, infection, injury to the biliary tree was described. Informed consent was obtained. DESCRIPTION OF PROCEDURE: Patient was brought to the operating room, placed in supine position. After general induction, the abdomen had been prepped and draped in standard sterile fashion. The robotic da Elida XI system was primed. After a timeout protocol was performed, the patient had been prepped and draped in standard sterile fashion. The patient was injected with indocyanine green. A 5 mm 0 degrees laparoscopic trocar entry was performed along the left upper quadrant. The abdomen insufflated to 15 mmHg pressure which was tolerated well. Diagnostic laparoscopy demonstrated no injury to bowel viscera or mesentery. The liver surface was unremarkable. Next, two 8 mm robotic ports were placed along the right upper abdomen. The camera 8-mm port was maintained along the epigastrium. Another 8 mm port was placed along the left upper abdominal wall after exchanging the 5 mm port. Please note that the ports were placed at least 10 to 15 cm away from the target anatomy of the gallbladder. The robot was docked along the left lateral abdomen. The patient was repositioned in reverse Trendelenburg position. Using a grasper for arm 3, a grasper for arm 4, including hook cautery for arm 1, the robotic system was docked and primed as described. Instruments were interchanged by the assistant professor of anthropology including hook cautery, Bovie cautery and clip appliers. I had sat at the console. The gallbladder fundus was retracted over the dome of the liver. Initial attention was brought to the infundibulum which was gently retracted in the inferior lateral approach. Using a grasper, the cystic duct including the cystic artery was carefully skeletonized. FIREFLY was used to identify the cystic artery and cystic structures. Large PLASTIC clips were used throughout the entire case. Using a clip cycle consultant 2 clips were placed proximally, and 1 clip was placed distally along the cystic duct and then cauterized with the cautery. Again care was taken to avoid any injury to the biliary tree as the common bile duct was clearly visualized during this portion of dissection. Next, the cystic artery was similarly clipped and cauterized. Electro-Bovie cautery was used to remove the gallbladder from the hepatic fossa. Hemostasis was checked and found to be adequate. The robot was undocked. I re-scrubbed into the case. Using a 10 mm Endo Catch bag via the left upper quadrant incision, the specimen was removed from the abdominal cavity. All pneumoperitoneum instruments were evacuated from the abdominal cavity. The incisions were reapproximated using 4-0 Monocryl in an interrupted subcuticular fashion. Fascial defects were less than 8 mm in size. Please note along the trocar sites, local anesthetic was placed as a field block prior to insertion of all instruments. Liquid glue was applied to the skin. At the end of the procedure needle, sponge, and instrument count had been verified correct by the surgical coordinator. The patient was transferred to postanesthesia care unit in stable condition. Intraoperative films were shared with the patient's family who were very pleased with the level of care. Plan - Discharge Summary Discharge Rx Participant: No New Discharge Prescriptions: No Action Omeprazole [PriLOSEC] 20 mg PO BID ALPRAZolam [Xanax] 0.5 mg PO BID PRN PRN Reason: Anxiety Citalopram Hydrobromide [CeleXA] 40 mg PO HS Clopidogrel [Plavix] 75 mg PO DAILY Empagliflozin [Jardiance] 25 mg PO DAILY Pregabalin [Lyrica] 150 mg PO BID Cholecalciferol (Vitamin D3) [Vitamin D3] 2,000 unit PO DAILY metFORMIN HCL [Glucophage] 500 mg PO BID Cariprazine HCl [Vraylar] 4.5 mg PO DAILY Discharge Medication List Omeprazole [PriLOSEC] 20 mg PO BID 10/04/14 [History] ALPRAZolam [Xanax] 0.5 mg PO BID PRN 06/02/17 [History] Citalopram Hydrobromide [CeleXA] 40 mg PO HS 06/02/17 [History] Clopidogrel [Plavix] 75 mg PO DAILY 06/02/17 [History] Empagliflozin [Jardiance] 25 mg PO DAILY 03/17/18 [History] Pregabalin [Lyrica] 150 mg PO BID 03/17/18 [History] Cholecalciferol (Vitamin D3) [Vitamin D3] 2,000 unit PO DAILY 07/19/18 [History] Cariprazine HCl [Vraylar] 4.5 mg PO DAILY 10/13/18 [History] metFORMIN HCL [Glucophage] 500 mg PO BID 10/13/18 [History]
[2018-10-14] MEDS ORDERED: ENALAPRILAT 1.25 MG/ML 1 ML VIAL IVP ONE (09:20)
[2018-10-14 10:12] VITALS: BP 170/77; PULSE 75; RESP 18
== END 2018-10-14 10:29 | disposition home or self-care (01) ==
LOC: OR 06:16
PROVIDERS: ATTEND Surgery Plastic and Reconstructive Surgery
DX: K81.1 Chronic cholecystitis (principal); I48.91 Unspecified atrial fibrillation; E78.5 Hyperlipidemia, unspecified; G47.33 Obstructive sleep apnea (adult) (pediatric); F32.9 Major depressive disorder, single episode, unspecified; F41.1 Generalized anxiety disorder; M79.7 Fibromyalgia; E11.21 Type 2 diabetes mellitus with diabetic nephropathy; K21.9 Gastro-esophageal reflux disease without esophagitis; N28.9 Disorder of kidney and ureter, unspecified; Z86.73 Personal history of transient ischemic attack (TIA), and cerebral infarction without residual deficits; Z98.84 Bariatric surgery status; Z79.02 Long term (current) use of antithrombotics/antiplatelets; Z79.84 Long term (current) use of oral hypoglycemic drugs; Z79.899 Other long term (current) drug therapy; Z99.89 Dependence on other enabling machines and devices; Z82.49 Family history of ischemic heart disease and other diseases of the circulatory system; Z87.891 Personal history of nicotine dependence
CPT/HCPCS: 47562; 88304; 80053; 85025; J2250; J1644; J1100; J2710; J2405; J2001; J3010; J2704; J0690

== ENCOUNTER → 2020-01-09 | Outpatient (CLI) | payer MEDICARE, OTHER ==
[2020-01-09 13:22] LABS: HCT 43.4 % (34.0-46.0); HGB 13.9 gm/dL (11.4-16.0); MCH 29.7 pg (25.0-35.0); Platelet Count 204 k/uL (150-450); RBC 4.67 m/uL (3.80-5.40); RDW 12.9 % (11.5-15.5); WBC 6.2 k/uL (3.8-10.6)
[2020-01-09 13:41] LABS: Potassium 4.6 mmol/L (3.5-5.1)
== END | disposition home or self-care (01) ==
LOC: LABPAT 11:18
PROVIDERS: ATTEND Internal Medicine Interventional Cardiology
DX: Z01.818 Encounter for other preprocedural examination (principal); R07.89 Other chest pain
CPT/HCPCS: 80048; 85027

== ENCOUNTER 2020-02-15 07:11 | Day surgery (SDC) | payer MEDICARE, OTHER ==
[2020-02-13 15:36] VITALS: BMI 32.3
[~2020-02-15 07:11] MED LIST changes: -DEXAMETHASONE SOD PHOSPHATE 10 MG/ML 1 ML VIAL IV ONE; -HEPARIN SODIUM,PORCINE 5,000 UNIT/ML 1 ML VIAL SQ ONE; -HYDROmorphone 0.5 MG/0.5 ML SYRINGE IVP PRN; -INDOCYANINE GREEN 25 MG VIAL IV STA; -MIDAZOLAM 2 MG/2 ML VIAL IV PRN; -ONDANSETRON 4 MG/2 ML VIAL IVP ONE; -ceFAZolin IN SWFI 2 GM/20 ML SYRINGE IVP ONE
[2020-02-15 07:40] VITALS: RESP 16; TEMP 97.1
[2020-02-15] MEDS ORDERED: LIDOCAINE 1% (10MG/ML) FOR IV START INTRADERMA ONE (07:40)
[2020-02-15] MEDS ORDERED: PROPOFOL 10 MG/ML 20 ML VIAL IV ONE (07:46)
[2020-02-15 07:48] LABS: Glucose,Whole Blood 97 mg/dL (75-99)
--- NOTE | 2020-02-15 07:49 | P.GSHP ---
History of Present Illness H&P Date: 02/15/20 Chief Complaint: GERD This a 69-year-old female who presents today for EGD. She's had issues with GERD. Past Medical History Past Medical History: CVA/TIA, Diabetes Mellitus, Fibromyalgia, GERD/Reflux, Hypertension, Sleep Apnea/CPAP/BIPAP Additional Past Medical History / Comment(s): Hx; TIA 1997-no residual effects, NEUROPATHY ARABELLA HANDS , recent chest pain- heart cath 01/2020-ok per pt, History of Any Multi-Drug Resistant Organisms: None Reported Past Surgical History: Back Surgery, Bariatric Surgery, Section, Cholecystectomy, Heart Catheterization, Orthopedic Surgery Additional Past Surgical History / Comment(s): Laparoscopic sleeve gastrectomy. right Knee arthroscopy, EGD, 3 C-Sections; arabella Cataracts Past Anesthesia/Blood Transfusion Reactions: Motion Sickness Smoking Status: Former smoker - Past Family History Father Family Medical History: CVA/TIA, Myocardial Infarction ([place]) Additional Family Medical History / Comment(s): . Mother Family Medical History: No Reported History Medications and Allergies Home Medications Medication Instructions Recorded Confirmed Type Omeprazole [PriLOSEC] 20 mg PO BID 10/04/14 02/15/20 History ALPRAZolam [Xanax] 0.5 mg PO BID PRN 06/02/17 02/15/20 History Citalopram Hydrobromide [CeleXA] 40 mg PO HS 06/02/17 02/15/20 History Clopidogrel [Plavix] 75 mg PO DAILY 06/02/17 02/15/20 History Empagliflozin [Jardiance] 25 mg PO DAILY 03/17/18 02/15/20 History Pregabalin [Lyrica] 150 mg PO BID 03/17/18 02/15/20 History metFORMIN HCL [Glucophage] 500 mg PO QAM 10/13/18 02/15/20 History traZODone HCL 50 mg PO HS 01/16/20 02/15/20 History Cariprazine HCl [Vraylar] 6 mg PO HS 02/13/20 02/15/20 History lisinopriL 20 mg PO DAILY 02/13/20 02/15/20 History Allergies Allergy/AdvReac Type Severity Reaction Status Date / Time No Known Allergies Allergy Verified 02/15/20 07:37 Surgical - Exam Vital Signs Temp Pulse Resp BP Pulse Ox 97.1 F L 63 16 139/87 94 L 02/15/20 07:39 02/15/20 07:39 02/15/20 07:39 02/15/20 07:39 02/15/20 07:39 - General well developed, well nourished, no distress - Eyes PERRL - ENT normal pinna - Neck no masses - Respiratory normal expansion - Cardiovascular Rhythm: regular - Abdomen Abdomen: soft, non tender Assessment and Plan Assessment: GERD. We'll perform EGD.
--- NOTE | 2020-02-15 07:57 | P.OP ---
Date of Procedure: 02/15/20 Preoperative Diagnosis: GERD Postoperative Diagnosis: Antral gastritis Hiatal hernia Esophagitis Procedure(s) Performed: EGD Anesthesia: MAC Surgeon: Christiano Servin Pathology: other (Antrum, esophagus) Condition: stable Disposition: PACU Description of Procedure: The patient's placed on the endoscopy table in the lateral position. She received IV sedation. The gastroscope placed oropharynx past esophagus and stomach. Scope was placed in the pylorus. The first and second portion of the duodenum appeared normal. Scope summer back the antrum this was mildly inflamed. A biopsies performed. Scope was unretroflexed and the remainder of the stomach appeared normal. The patient had a moderate size hiatal hernia. The GE junction was at 37 cm. The distal esophagus appeared inflamed a biopsies performed. The proximal esophagus appeared normal. Scope withdrawn for patient.
[2020-02-15 08:15] VITALS: BP 145/87; PULSE 56
== END 2020-02-15 08:41 | disposition home or self-care (01) ==
LOC: ORWHC2ENDO 07:11
PROVIDERS: ATTEND Surgery
DX: K21.00 Gastro-esophageal reflux disease with esophagitis, without bleeding (principal); K29.70 Gastritis, unspecified, without bleeding; K44.9 Diaphragmatic hernia without obstruction or gangrene; K31.89 Other diseases of stomach and duodenum; I10 Essential (primary) hypertension; G47.33 Obstructive sleep apnea (adult) (pediatric); Z99.89 Dependence on other enabling machines and devices; M79.7 Fibromyalgia; Z86.73 Personal history of transient ischemic attack (TIA), and cerebral infarction without residual deficits; Z79.02 Long term (current) use of antithrombotics/antiplatelets; Z79.84 Long term (current) use of oral hypoglycemic drugs; Z79.899 Other long term (current) drug therapy; E11.40 Type 2 diabetes mellitus with diabetic neuropathy, unspecified; Z98.41 Cataract extraction status, right eye; Z98.42 Cataract extraction status, left eye; Z98.890 Other specified postprocedural states; Z98.84 Bariatric surgery status; Z98.891 History of uterine scar from previous surgery; Z90.49 Acquired absence of other specified parts of digestive tract; Z87.891 Personal history of nicotine dependence; Z82.49 Family history of ischemic heart disease and other diseases of the circulatory system
CPT/HCPCS: 88305; 43239; J2704

== ENCOUNTER → 2020-02-26 | Outpatient (CLI) | payer MEDICARE, OTHER ==
[2020-02-26 12:48] LABS: Basophils % (A) 1 %; Eosinophils # (A) 0.1 k/uL (0-0.7); Eosinophils % (A) 1 %; Lymphocytes # (A) 1.7 k/uL (1.0-4.8); Lymphocytes % (A) 32 %; MCH 29.8 pg (25.0-35.0); MCHC 32.6 g/dL (31.0-37.0); MCV 91.4 fL (80.0-100.0); Mean Platelet Volume 7.1; Monocytes # (A) 0.3 k/uL (0-1.0); Monocytes % (A) 5 %; Neutrophils # (A) 3.2 k/uL (1.3-7.7); Neutrophils % (A) 60 %; Platelet Count 202 k/uL (150-450); RBC 4.71 m/uL (3.80-5.40); WBC 5.4 k/uL (3.8-10.6)
== END | disposition home or self-care (01) ==
LOC: LABPAT 10:06
PROVIDERS: ATTEND Surgery
DX: Z01.818 Encounter for other preprocedural examination (principal); K21.9 Gastro-esophageal reflux disease without esophagitis
CPT/HCPCS: 36415; 85025; 93005

== ENCOUNTER 2020-02-28 09:58 | Day surgery (SDC) | payer MEDICARE, OTHER ==
[~2020-02-28 09:58] MED LIST changes: +ACETAMINOPHEN TAB 500 MG TAB PO PRN; +HEPARIN SODIUM,PORCINE 5,000 UNIT/ML 1 ML VIAL SQ PRN; +HYDROmorphone 0.5 MG/0.5 ML SYRINGE IVP PRN; +MIDAZOLAM 2 MG/2 ML VIAL IV PRN; +ONDANSETRON 4 MG/2 ML VIAL IVP PRN; +fentaNYL (PF) 50 MCG/ML 2 ML AMP IV PRN
[2020-02-28 10:50] LABS: Glucose,Whole Blood 113 mg/dL (75-99)
[2020-02-28] MEDS ORDERED: ONDANSETRON 4 MG/2 ML VIAL ONE (10:50)
[2020-02-28] MEDS ORDERED: DEXAMETHASONE SOD PHOSPHATE 4 MG/ML 1 ML VIAL IVP ONE (10:56)
[2020-02-28] MEDS ORDERED: SUCCINYLCHOLINE CHLORIDE 100 MG/5 ML SYR IV ONE (12:35)
[2020-02-28] MEDS ORDERED: MIDAZOLAM 2 MG/2 ML VIAL ONE (12:35)
[2020-02-28] MEDS ORDERED: fentaNYL (PF) 50 MCG/ML 2 ML AMP ONE (12:35)
[2020-02-28] MEDS ORDERED: ROCURONIUM 10 MG/ML (10 ML VIAL) IV ONE (12:35)
[2020-02-28] MEDS ORDERED: NEOSTIGMINE 1 MG/ML 10 ML VIAL ONE (12:35)
[2020-02-28] MEDS ORDERED: PROPOFOL 10 MG/ML 20 ML VIAL IV ONE (12:35)
[2020-02-28] MEDS ORDERED: GLYCOPYRROLATE 0.2 MG/ML 2 ML VIAL ONE (12:35)
[2020-02-28] MEDS ORDERED: LIDOCAINE 1% INJ 10MG/ML (20 ML MDV) ONE (12:35)
[2020-02-28] MEDS ORDERED: BUPIVACAINE (PF) 0.25% 30 ML VIAL SQ ONE (13:10)
--- NOTE | 2020-02-28 13:33 | P.GSHP ---
History of Present Illness H&P Date: 02/28/20 Chief Complaint: GERD Is a 69-year-old female who presents today for laparoscopic hiatal hernia repair. Patient's had history of GERD. She is a previously gastrectomy. She is known to have a hiatal hernia Past Medical History Past Medical History: CVA/TIA, Diabetes Mellitus, Fibromyalgia, GERD/Reflux, Hypertension, Sleep Apnea/CPAP/BIPAP Additional Past Medical History / Comment(s): Hx; TIA 1997-no residual effects, NEUROPATHY ARABELLA HANDS , recent chest pain- heart cath 01/2020-ok per pt, hiatal hernia, no CPAP used History of Any Multi-Drug Resistant Organisms: None Reported Past Surgical History: Back Surgery, Bariatric Surgery, Section, Cholecystectomy, Heart Catheterization, Orthopedic Surgery Additional Past Surgical History / Comment(s): Laparoscopic sleeve gastrectomy. right Knee arthroscopy, EGD, 3 C-Sections; arabella Cataracts, recent EGD Past Anesthesia/Blood Transfusion Reactions: Motion Sickness Smoking Status: Former smoker - Past Family History Father Family Medical History: CVA/TIA, Myocardial Infarction (NM) Additional Family Medical History / Comment(s): . Mother Family Medical History: No Reported History Medications and Allergies Home Medications Medication Instructions Recorded Confirmed Type Omeprazole [PriLOSEC] 20 mg PO BID 10/04/14 02/28/20 History ALPRAZolam [Xanax] 0.5 mg PO BID PRN 06/02/17 02/28/20 History Citalopram Hydrobromide [CeleXA] 40 mg PO HS 06/02/17 02/28/20 History Clopidogrel [Plavix] 75 mg PO DAILY 06/02/17 02/28/20 History Empagliflozin [Jardiance] 25 mg PO DAILY 03/17/18 02/28/20 History Pregabalin [Lyrica] 150 mg PO BID 03/17/18 02/28/20 History metFORMIN HCL [Glucophage] 500 mg PO QAM 10/13/18 02/28/20 History traZODone HCL 50 mg PO HS 01/16/20 02/28/20 History Cariprazine HCl [Vraylar] 6 mg PO HS 02/13/20 02/28/20 History lisinopriL 20 mg PO DAILY 02/13/20 02/28/20 History Allergies Allergy/AdvReac Type Severity Reaction Status Date / Time No Known Allergies Allergy Verified 02/28/20 10:26 Surgical - Exam Vital Signs Temp Pulse Resp BP Pulse Ox 97.6 F 67 18 158/72 92 L 02/28/20 10:20 02/28/20 10:20 02/28/20 10:20 02/28/20 10:20 02/28/20 10:20 - General well developed, well nourished, no distress - Eyes PERRL - ENT normal pinna - Neck no masses - Respiratory normal expansion - Cardiovascular Rhythm: regular - Abdomen Abdomen: soft, non tender Results - Labs Abnormal Lab Results - Last 24 Hours (Table) 02/28/20 Range/Units 10:45 POC Glucose (mg/dL) 113 H (75-99) mg/dL Assessment and Plan Assessment: GERD. We'll perform laparoscopic repair of hiatal hernia.
[2020-02-28] MEDS ORDERED: HYDROmorphone 1 MG/ML 1 ML SYRINGE IVP PRN (13:34)
--- NOTE | 2020-02-28 13:34 | P.OP ---
Date of Procedure: 02/28/20 Preoperative Diagnosis: GERD Postoperative Diagnosis: GERD Procedure(s) Performed: Laparoscopic hiatal hernia repair Anesthesia: LUIS Surgeon: Christiano Servin Estimated Blood Loss (ml): 10 Pathology: none sent Condition: stable Disposition: PACU Description of Procedure: The patient was placed on the operating table in the supine position. The patient received general anesthesia. And was placed in dorsal lithotomy position. The patient was prepped and draped in the usual sterile fashion. The skin incision sites were anesthetized with 1% local Xylocaine. The skin was incised in the left periumbilical area and then using a blade less 5 mm trocar under direct visualization panel cavity was entered. After adequate insufflation the laparoscope was then placed into the peritoneal cavity. Next a 5 mm trochars placed in the right epigastric position. Another 5 millimeter trocar the right lateral position. Another 5 millimeter trocar in the left lateral position a 5 mm trocar is placed in the left epigastric position. And then the initial 5 mm trocar was exchanged for a 10 mm trocar. The left lateral lobe liver was retracted. The hernia was seen. The crural defect was then dissected using the Harmonic scissors device. A 360 crural dissection was per formed the esophagus stomach was reduced back into the peritoneal Cavity. The crural defect was then closed using 2-0 Ethibond suture. The patient previously sleeve gastrectomy. There was no a significant portion of fundus seen the could be used as a wrap. There was no injury seen to the stomach or esophagus. The dilator was then withdrawn. The abdomen was irrigated there is no bleeding seen . The trochars were then withdrawn and then skin incision sites were closed using 3-0 Monocryl suture Steri-Strips are applied. Patient thought procedure well and sent to recovery room in stable condition.
[2020-02-28] MEDS ORDERED: hydrALAZINE HCL 20 MG/ML 1 ML VIAL IVP ONE (14:10)
[2020-02-28 14:46] LABS: Glucose,Whole Blood 160 mg/dL (75-99)
--- NOTE | 2020-02-28 15:57 | FL ---
EXAMINATION TYPE: FL esophagus cervic/pharynx DATE OF EXAM: 02/28/2020 LIMITED UGI -ESOPHAGRAM: CLINICAL HISTORY: Hiatal hernia, Chris fundoplication surgery earlier today. TECHNIQUE: Limited esophagram is performed utilizing 20 oz of Isovue-370. A total of 16 seconds of f luoroscopic time was utilized during procedure. 15 spot images saved to PACS. FINDINGS: The patient swallowed contrast without difficulty or delay. Esophageal peristalsis and mo tility are within normal limits. There is good flow of contrast along the diaphragmatic hiatus into t he stomach, there is no evidence of contrast extravasation to suggest leak. No persistent hiatal wendy ia is seen. Patient remains asymptomatic. IMPRESSION: No evidence of leak or significant obstruction status post Ajay fundoplication surgery earlier today.
[2020-02-28] MEDS: D5-0.45% NACL WITH KCL 20MEQ/L 1,000 ML IV SCH ×2 (16:36→22:54)
[2020-02-28] MEDS ORDERED: ACETAMINOPHEN TAB 325 MG TAB PO PRN (17:35)
[2020-02-28] MEDS ORDERED: ALPRAZolam 0.5 MG TAB PO PRN (22:22)
[2020-02-28] MEDS ORDERED: NON FORMULARY DRUG (Cariprazine Hcl [Vraylar] 6 MG Capsule) PO SCH (22:30)
[2020-02-28] MEDS ORDERED: CITALOPRAM HYDROBROMIDE 20 MG TAB PO SCH (22:45)
[2020-02-28] MEDS ORDERED: traZODone HCL 50 MG TAB PO SCH (22:45)
[2020-02-28] MEDS: PREGABALIN 75 MG CAP PO SCH (22:52)
[2020-02-28] MEDS: PANTOPRAZOLE 40 MG TABLET PO SCH (22:52)
[2020-02-29] MEDS: D5-0.45% NACL WITH KCL 20MEQ/L 1,000 ML IV SCH (08:56)
[2020-02-29] MEDS: PREGABALIN 75 MG CAP PO SCH (08:57)
[2020-02-29] MEDS: PANTOPRAZOLE 40 MG TABLET PO SCH (08:58)
[2020-02-29] MEDS ORDERED: lisinopriL 20 MG TAB PO SCH (09:00)
[2020-02-29] MEDS ORDERED: metFORMIN 500 MG TAB PO SCH (09:00)
[2020-02-29] MEDS ORDERED: NON FORMULARY DRUG (Empagliflozin [Jardiance] 25 MG Tablet) PO SCH (09:00)
[2020-02-29] MEDS ORDERED: ENOXAPARIN 40 MG/0.4 ML SYRINGE SQ SCH (09:00)
[2020-02-29] MEDS ORDERED: CLOPIDOGREL 75 MG TAB PO SCH (09:00)
[2020-02-29 09:23] VITALS: BP 162/81; PULSE 79; RESP 16; TEMP 97.9
--- NOTE | 2020-02-29 12:12 | P.DS ---
Providers Date of admission: The patient is postoperative day 1 Attending physician: Christiano Servin Consults: 02/28/20 13:34 Consult Physician Routine Consulting Provider: Chester Ruggiero Consult Reason/Comments: Medical management Do you want consulting provider notified?: Yes Primary care physician: Chester Ruggiero Hospital Course: Patient's postoperative day 1 from laparoscopic Chris fundal plication. She's doing quite well. She has no complaints. She is tolerating diet. Procedures: Laparoscopic Chris fundoplication Patient Condition at Discharge: Good Plan - Discharge Summary Discharge Rx Participant: Yes New Discharge Prescriptions: New Docusate [Colace] 100 mg PO BID #20 capsule Ibuprofen [Motrin] 600 mg PO Q6HR PRN #40 tab PRN Reason: Pain oxyCODONE HCL [OxyIR] 5 mg PO Q4H PRN 3 Days #18 tab PRN Reason: Pain Acetaminophen Tab [Tylenol] 650 mg PO Q6H #30 tab No Action Omeprazole [PriLOSEC] 20 mg PO BID ALPRAZolam [Xanax] 0.5 mg PO BID PRN PRN Reason: Anxiety Citalopram Hydrobromide [CeleXA] 40 mg PO HS Clopidogrel [Plavix] 75 mg PO DAILY Empagliflozin [Jardiance] 25 mg PO DAILY Pregabalin [Lyrica] 150 mg PO BID metFORMIN HCL [Glucophage] 500 mg PO QAM traZODone HCL 50 mg PO HS Cariprazine HCl [Vraylar] 6 mg PO HS lisinopriL 20 mg PO DAILY Discharge Medication List Omeprazole [PriLOSEC] 20 mg PO BID 10/04/14 [History] ALPRAZolam [Xanax] 0.5 mg PO BID PRN 06/02/17 [History] Citalopram Hydrobromide [CeleXA] 40 mg PO HS 06/02/17 [History] Clopidogrel [Plavix] 75 mg PO DAILY 06/02/17 [History] Empagliflozin [Jardiance] 25 mg PO DAILY 03/17/18 [History] Pregabalin [Lyrica] 150 mg PO BID 03/17/18 [History] metFORMIN HCL [Glucophage] 500 mg PO QAM 10/13/18 [History] traZODone HCL 50 mg PO HS 01/16/20 [History] Cariprazine HCl [Vraylar] 6 mg PO HS 02/13/20 [History] lisinopriL 20 mg PO DAILY 02/13/20 [History] Acetaminophen Tab [Tylenol] 650 mg PO Q6H #30 tab 02/29/20 [Rx] Docusate [Colace] 100 mg PO BID #20 capsule 02/29/20 [Rx] Ibuprofen [Motrin] 600 mg PO Q6HR PRN #40 tab 02/29/20 [Rx] oxyCODONE HCL [OxyIR] 5 mg PO Q4H PRN 3 Days #18 tab 02/29/20 [Rx] Patient Instructions/Handouts: *Surgery [facility] - ([facility]) Lap Chris Fundiplication Post-Op Instructions Discharge Disposition: HOME SELF-CARE
[2020-02-29 13:00] VITALS: BMI 32.6
--- NOTE | 2020-03-01 01:15 | CONS ---
CONSULTATION DATE OF SERVICE: 02/29/2020 I am covering for Dr. Ruggiero. REASON FOR CONSULTATION: Advice regarding diabetes mellitus and other medical issues, requested by Dr. Servin. HISTORY OF PRESENT ILLNESS: This 69-year-old woman with a past medical history of diabetes mellitus, fibromyalgia, GERD, hypertension, sleep apnea, being followed by Dr. Ruggiero in the outpatient setting, underwent laparoscopic hiatal hernia repair by Dr. Servin. The patient tolerated the procedure well. There is no history of fever, rigors. No history of headache, loss of consciousness, chest pain, palpitations at this time. PAST MEDICAL HISTORY: History CVA, TIA, diabetes mellitus, fibromyalgia, GERD, hypertension, sleep apnea. HOME MEDICATIONS: Home medications are reviewed and include: Trazodone, Glucophage, lisinopril, Lyrica, Prilosec, Jardiance, Plavix, Celexa, cariprazine, Xanax, OxyIR, Motrin, Colace, Tylenol. ALLERGIES: None. FAMILY HISTORY: History of CVA, TIA, myocardial infarction in the family. SOCIAL HISTORY: Previous history of smoking. Occasional alcohol intake. REVIEW OF SYSTEMS: ENT: No diminished hearing or diminished vision CARDIOVASCULAR SYSTEM: No angina. RESPIRATORY SYSTEM: No cough or hemoptysis. GI: As mentioned earlier. : No dysuria. NERVOUS SYSTEM: No numbness or weakness. ALLERGY/IMMUNOLOGY: No asthma or hayfever. MUSCULOSKELETAL: As mentioned earlier. HEMATOLOGY/ONCOLOGY: No history of anemia. ENDOCRINE: Diabetes mellitus. CONSTITUTIONAL: As mentioned earlier. DERMATOLOGY: Negative. RHEUMATOLOGY: Negative. PSYCHIATRY: As mentioned earlier. PHYSICAL EXAMINATION: The patient is alert and oriented x3. Pulse 79, blood pressure 162/81, respirations 16, temperature 97.9, pulse ox 96% on room air. HEENT: Conjunctivae normal. NECK: No jugular venous distention. CARDIOVASCULAR: S1, S2 muffled. RESPIRATORY: Breath sounds diminished at the bases. No rhonchi, no crackles. ABDOMEN: Soft, status post surgery. No mass palpable. No guarding or rigidity. LEGS: No edema, no swelling. NERVOUS SYSTEM: Higher function as mentioned earlier. Moves all 4 limbs. No focal motor or sensory deficits. LYMPHATICS: No lymphadenopathy of the neck, axillae or groin. SKIN: No ulcer, rash or bleeding. JOINTS: No active deforming arthropathy. LABS: Glucose 113 and 160. ASSESSMENT: 1. Status post laparoscopic hiatal hernia repair for gastroesophageal reflux disease. 2. Diabetes mellitus type 2. 3. History of cerebrovascular accident, transient ischemic attack. 4. Fibromyalgia. 5. Gastroesophageal reflux disease. 6. Hypertension. 7. Sleep apnea. 8. History of peripheral neuropathy. 9. History of back surgery. 10.History of bariatric surgery. 11.History of cholecystectomy. 12.History of bipolar. 13.Remote history of nicotine dependence. RECOMMENDATIONS AND DISCUSSION: This 69-year-old woman presented with multiple medical problems, I recommend to resume the home medication. Monitor Accu-Cheks closely. NovoLog scale. DVT prophylaxis. Incentive spirometry. The patient may be asked to follow up Dr. Ruggiero in the outpatient setting. We will follow the patient closely with you. Thank you Dr. Servin for letting us participate in the care of this patient. MMODL / IJN: [id number] /
== END 2020-02-29 13:11 | disposition home or self-care (01) ==
LOC: OR 09:58 → 6PED 13:40 → OR 02-29 13:11
PROVIDERS: ATTEND Surgery
DX: K44.9 Diaphragmatic hernia without obstruction or gangrene (principal); K21.9 Gastro-esophageal reflux disease without esophagitis; R94.31 Abnormal electrocardiogram [ECG] [EKG]; I10 Essential (primary) hypertension; G47.30 Sleep apnea, unspecified; M79.7 Fibromyalgia; E11.42 Type 2 diabetes mellitus with diabetic polyneuropathy; F31.9 Bipolar disorder, unspecified; Z86.73 Personal history of transient ischemic attack (TIA), and cerebral infarction without residual deficits; Z98.890 Other specified postprocedural states; Z98.84 Bariatric surgery status; Z90.49 Acquired absence of other specified parts of digestive tract; Z98.41 Cataract extraction status, right eye; Z98.42 Cataract extraction status, left eye; Z87.898 Personal history of other specified conditions; Z87.891 Personal history of nicotine dependence; Z79.899 Other long term (current) drug therapy; Z79.02 Long term (current) use of antithrombotics/antiplatelets; Z79.84 Long term (current) use of oral hypoglycemic drugs; Z79.1 Long term (current) use of non-steroidal anti-inflammatories (NSAID); Z97.2 Presence of dental prosthetic device (complete) (partial); Z82.3 Family history of stroke; Z82.49 Family history of ischemic heart disease and other diseases of the circulatory system
CPT/HCPCS: 74210; 43281; J0360; J1644; J1100; J0690; J2405; J1650; J1170; Q9967

== ENCOUNTER → 2020-11-27 | Outpatient (CLI) | payer MEDICARE, OTHER ==
--- NOTE | 2020-11-27 13:25 | MR ---
EXAMINATION TYPE: MR lumbar spine wo con DATE OF EXAM: 11/27/2020 1:00 PM COMPARISON: NONE HISTORY: Low back pain Multiplanar, MultiSpin echo imaging of the lumbar spine was performed. L1-L2: Normal disc appearance without desiccation. No herniation, protrusion or disc bulging. No ca nal stenosis is present. Foramina are patent bilaterally. L2-L3: Moderate disc desiccation noted. Posterior disc bulge with effacement ventral thecal sac. Mild central stenosis. Facet joint arthropathy. L3-L4: Mild degenerative disc disease. Minimal posterior disc bulge. No significant effacement. No he rniation protrusion or central stenosis. No foraminal encroachment. L4-L5: Mild degenerative disc disease. Minimal posterior disc bulge. No significant effacement. No he rniation protrusion or central stenosis. No foraminal encroachment. L5-S1: Mild degenerative disc disease. Minimal posterior disc bulge. No significant effacement. No he rniation protrusion or central stenosis. No foraminal encroachment. Lumbar segments are intact. No paraspinal masses are identified. Conus medullaris has a normal appe arance. IMPRESSION: 1. Multilevel degenerative disc disease as discussed. 2. Mild central stenosis L2-3.
== END | disposition home or self-care (01) ==
LOC: RADMRIMAIN 12:08
PROVIDERS: ATTEND Orthopaedic Surgery
DX: M48.061 Spinal stenosis, lumbar region without neurogenic claudication (principal); M51.36 Other intervertebral disc degeneration, lumbar region
CPT/HCPCS: 72148

== ENCOUNTER 2020-12-31 10:49 | Day surgery (SDC) | payer MEDICARE, OTHER ==
[2020-12-30 08:40] VITALS: BMI 31.7
[~2020-12-31 10:49] MED LIST changes: -ACETAMINOPHEN TAB 500 MG TAB PO PRN; -HEPARIN SODIUM,PORCINE 5,000 UNIT/ML 1 ML VIAL SQ PRN; -HYDROmorphone 0.5 MG/0.5 ML SYRINGE IVP PRN; -MIDAZOLAM 2 MG/2 ML VIAL IV PRN; -ONDANSETRON 4 MG/2 ML VIAL IVP PRN; -fentaNYL (PF) 50 MCG/ML 2 ML AMP IV PRN
[2020-12-31 11:12] VITALS: TEMP 97.5
[2020-12-31 11:20] LABS: Glucose,Whole Blood 109 mg/dL (75-99)
[2020-12-31] MEDS ORDERED: fentaNYL (PF) 50 MCG/ML 2 ML AMP ONE (12:00)
[2020-12-31] MEDS ORDERED: methylPREDNISolone ACETATE 40 MG/ML 1 ML VIAL ONE (12:00)
[2020-12-31] MEDS ORDERED: MIDAZOLAM 2 MG/2 ML VIAL ONE (12:00)
[2020-12-31] MEDS ORDERED: IOPAMIDOL M200 10 ML VIAL ONE (12:00)
--- NOTE | 2020-12-31 12:20 | P.PCN ---
Date of Procedure: 12/31/20 Procedure(s) Performed: PREOPERATIVE DIAGNOSIS:1- Lumbar radiculopathy . 2-lumbar spondylosis with lumbar facet arthropathy. 3-lumbar degenerative disc disease POSTOPERATIVE DIAGNOSIS: Same as preoperative diagnoses. PROCEDURE 1. Transforaminal epidural steroid injection under fluoroscopic guidance at right L5-S1 level. (Fluoroscopy images stored on file in the radiology Department ) 2. Lumbar epidurogram . ANESTHESIA: Local with 1% lidocaine 3 ml , moderate sedation with intravenous Versed 1 mg and fentanyle 50 micrograms. EBL: Minimal PROCEDURE INDICATION: The patient with low back pain and radiculopathy symptoms unresponsive to conservative treatment. PROCEDURE DESCRIPTION / TECHNIQUE: The patient was seen and identified in the preoperative area. Risks, benefits, complications, and alternatives were discussed with the patient. The patient agreed to proceed with the procedure and signed the consent. IV was started, and vital signs were stable. Patient was taken to the OR and time out was completed. The patient was placed in the prone position on procedure table and a pillow was placed under the abdomen to reduce lumbar lordosis. The lumbosacral area was prepped and draped in the usual sterile fashion. Critical pause was taken. Vital signs were closely monitored during the procedure. Conscious sedation was used during the procedure to decrease patient s anxiety. Using oblique fluoroscopy, the chin of the ``Eleuterio dog at L5-S1 level was identified, and the skin and deeper tissues just below was localized with 1% lidocaine. Subsequently, a 22-gauge 5-inch spinal needle was advanced under a tunneled view fluoroscopic guidance just underneath the chin of the ``Eleuterio dog at the right L5-S1 Under lateral fluoroscopy, the needle was then advanced to the posterior border of the interforaminal space. After negative aspiration of CSF and blood and with no paresthesias, 1 mL Isovue 200 contrast dye was injected excellent epidurogram and outlining of the nerve root Subsequently, 3 mL of block solution containing 40 mg Depo-Medrol and 2 mL of 0.9% normal saline PF was injected. Needle was removed . At the end of the procedure, skin was cleansed, and bandages were applied. COMPLICATIONS:none DISPOSITION / PLANS: The patient was placed in a supine position and transferred to the recovery area in a stable condition for observation. There was no evidence of lower extremity motor or sensory deficit after the procedure. Patient was discharged from the recovery room after meeting discharge criteria. Home discharge instructions were given to the patient by the staff. The patient was reexamined prior to discharge.
[2020-12-31] MEDS ORDERED: IV FLUID CONTINUATION 1,000 ML IV ONE (12:21)
[2020-12-31 12:23] VITALS: RESP 16
[2020-12-31 12:35] VITALS: BP 166/69; PULSE 60
--- NOTE | 2020-12-31 13:57 | FL ---
EXAMINATION TYPE: FL guided pain mgmt statistic DATE OF EXAM: 12/31/2020 FLUOROSCOPY Fluoroscopy time of 6 seconds was used during right transforaminal epidural injection. 1 image/s doc ument/s the procedure.
== END 2020-12-31 12:51 | disposition home or self-care (01) ==
LOC: ORPAIN 10:49
PROVIDERS: ATTEND Specialist
DX: M47.26 Other spondylosis with radiculopathy, lumbar region (principal); M51.16 Intervertebral disc disorders with radiculopathy, lumbar region; Z79.02 Long term (current) use of antithrombotics/antiplatelets; E11.9 Type 2 diabetes mellitus without complications
CPT/HCPCS: 64483; J2250; J1030; J3010; Q9966; 99152

== ENCOUNTER → 2022-07-24 | Outpatient (CLI) | payer MEDICARE, OTHER ==
--- NOTE | 2022-07-24 13:49 | XR ---
EXAMINATION TYPE: XR cervical spine limited DATE OF EXAM: 07/24/2022 COMPARISON: None HISTORY: Pain and aaph-tjy-fiadmsk down arm TECHNIQUE: Single lateral view cervical spine FINDINGS: Prevertebral space is normal. Posterior spinal lamellar line is intact. Vertebral body heig hts are preserved. There is some disc space narrowing C5-6 and C6-7. IMPRESSION: 1. Mild degenerative disc change lower cervical spine and single sagittal view.
== END | disposition home or self-care (01) ==
LOC: RADXRMAIN 13:21
PROVIDERS: ATTEND Family Medicine
DX: M50.30 Other cervical disc degeneration, unspecified cervical region (principal)
CPT/HCPCS: 72040

== ENCOUNTER → 2024-06-12 | Outpatient (CLI) | payer MEDICARE ==
--- NOTE | 2024-06-12 08:46 | CT ---
EXAMINATION TYPE: CT brain wo con DATE OF EXAM: 06/12/2024 COMPARISON: CT brain June 02, 2017 CLINICAL INDICATION: Female, 74 years old with history of R51.9 HEADACHE, Rt occipital head pain, hea daches. TECHNIQUE: CT scan of the head is performed without contrast. CT DLP: 1086.20 mGycm. Automated Exposure Control for Dose Reduction was Utilized. FINDINGS: There is no acute intracranial hemorrhage or midline shift identified. There is mild diff use ventricular and sulcal prominence redemonstrated. There is mild to moderate low-attenuation in t he deep and periventricular white matter redemonstrated. There is mild to moderate mucosal thickening involving bilateral maxillary sinuses. Bilateral aphakia is seen. IMPRESSION: No acute intracranial hemorrhage or midline shift. There is mild diffuse age-related ce rebral atrophy and mild to moderate probable chronic small vessel ischemic change redemonstrated. Ch ronic maxillary sinus disease is seen. [facility], , 06/12/2024 8:44 AM
--- NOTE | 2024-06-12 08:51 | BD ---
EXAMINATION TYPE: Axial Bone Density DATE OF EXAM: 06/12/2024 CLINICAL HISTORY: 74 years old Female. ICD-10 CODE: M81.0 OSTEOPOROSIS , Additional History: Height: 59" Weight: 183lbs FRAX RISK QUESTIONS: Alcohol (3 or more units per day): No Family History (Parent hip fracture): Yes, mother Glucocorticoids (More than 3mos): No (Ex: prednisone, prednisolone, methylprednisolone, dexamethasone, and hydrocortisone). History of Fracture in Adulthood: Yes Secondary Osteoporosis: 1. Type 1 Diabetes: No 2. Hyperthyroidism: No 3. Menopause before 45: No 4. Malnutrition: No 5. Chronic liver disease: No Rheumatoid Arthritis: No Current Tobacco Use: No RISK FACTORS HISTORY OF: Hip Fracture (Right/Left): No Spine Fracture: No History of Wrist Fracture: No Surgery to Spine/Hip(right/left)/Wrist (right/left): Lumbar spine surgery approximately 5 years ago MEDICATIONS: Thyroid Medications: No Osteoporosis Medications: No EXAM MEASUREMENTS: Bone mineral densitometry was performed using the [employer] System. Bone mineral density about the R hip (g/cm2): 0.805 Bone mineral density about the L hip (g/cm2): 0.692 T Score values are as follows: -----R Neck: -2.9 -----L Neck: -3.2 -----R Total: -1.6 -----L Total: -2.5 Z Score values are as follows: -----R Neck: -1.5 -----L Neck: -1.8 -----R Total: -0.5 -----L Total: -1.4 Bone mineral density has: decreased -11.2% since study of: 06/08/2018 Bone mineral density about the L Wrist (g/cm2): 0.492 T Score values are as follows: -----Dist. R+U: -2.0 -----Prox. R+U: -2.3 -----Radius total: -3.0 Z Score values are as follows: -----Dist. R+U: 0.0 -----Prox. R+U: -0.4 -----Radius total: -1.0 Bone mineral density has: decreased -11.7% since study of: 06/08/2018 FRAX%s: The graph provided illustrates a 19.8% chance for a major osteoporotic fx and a 7.2% chance f or the hips probability for fx in 10 years time. IMPRESSION: Osteoporosis (T Score less than -2.5). There is increased fracture risk and therapy is usually indicated based on age. Re-Screen 1-2 years. NOTE: T-SCORE=SD OF THE YOUNG ADULT MEAN. [facility], , 06/12/2024 8:49 AM
== END | disposition home or self-care (01) ==
LOC: RADCTMAIN 07:49
PROVIDERS: ATTEND Family Medicine
DX: J32.0 Chronic maxillary sinusitis (principal); G31.1 Senile degeneration of brain, not elsewhere classified; M85.89 Other specified disorders of bone density and structure, multiple sites; M81.0 Age-related osteoporosis without current pathological fracture
CPT/HCPCS: 70450; 77080

== ENCOUNTER → 2024-08-14 | Outpatient (CLI) | payer MEDICARE ==
--- NOTE | 2024-08-14 11:22 | CT ---
EXAMINATION TYPE: CT brain wo con DATE OF EXAM: 08/14/2024 11:15 AM COMPARISON: 06/12/2024 CLINICAL INDICATION: Female, 74 years old with history of G45.9 TRANSIENT CEREBRAL ISCHEMIC ATTACK, l eft sided head pain no known injury, TECHNIQUE: Examination was done in axial plane without intravenous contrast. Coronal and sagittal r econstructions performed. CT DLP: 1009 mGycm, Automated exposure control for dose reduction was used. FINDINGS: There is no evidence of acute intracranial hemorrhage, acute ischemic changes, mass, mass-effect, or extra-axial fluid collection. There is no effacement of cerebral sulci or basal subarachnoid cister ns. There is no hydrocephalus. There is no midline shift. Santos-white matter distinction is preserv ed. Atherosclerotic calcifications within the carotid siphons. Moderate patchy white matter hypodensity c erebral hemispheres. Encephalomalacia anterior left frontal lobe unchanged compatible with site of ol d infarct. Visualized paranasal sinuses and mastoid air cells well pneumatized. Orbits and globes appear intact. IMPRESSION: 1. Moderate burden of chronic small vessel ischemic disease. Old infarct anterior left frontal lobe. 2. No acute intracranial abnormality seen. [facility], , 08/14/2024 11:19 AM
== END | disposition home or self-care (01) ==
LOC: RADCTMAIN 10:50
PROVIDERS: ATTEND Family Medicine
DX: I67.82 Cerebral ischemia (principal); G45.9 Transient cerebral ischemic attack, unspecified
CPT/HCPCS: 70450

== ENCOUNTER → 2024-09-08 | Outpatient (CLI) | payer MEDICARE ==
--- NOTE | 2024-09-08 10:49 | US ---
EXAMINATION TYPE: US carotid duplex BILAT DATE OF EXAM: 09/08/2024 COMPARISON: US 2018 CLINICAL INDICATION: Female, 74 years old with history of G45.9 TRANSIENT CEREBRAL ISCHEMIC ATTACK; TECHNIQUE: Grayscale, color Doppler and spectral Doppler evaluation of the bilateral carotid systems and vertebral arteries. Indirect Doppler criteria was utilized. FINDINGS: EXAM MEASUREMENTS: RIGHT: Peak Systolic Velocity (PSV) cm/sec ----- Right CCA: 57.4 ----- Right ICA: 119.0 ----- Right ECA: 98.8 ICA/CCA ratio: 2.1 RIGHT: End Diastole cm/sec ----- Right CCA: 15.4 ----- Right ICA: 36.2 ----- Right ECA: 10.8 LEFT: Peak Systolic Velocity (PSV) cm/sec ----- Left CCA: 45.3 ----- Left ICA: 51.3 ----- Left ECA: 67.4 ICA/CCA ratio: 1.1 LEFT: End Diastole cm/sec ----- Left CCA: 14.9 ----- Left ICA: 16.7 ----- Left ECA: 14.9 VERTEBRALS (direction of flow): Right Vertebral: Antegrade Left Vertebral: Antegrade Rhythm: Normal IMPRESSION: No significant flow-limiting stenosis. Criteria for Assigning % of Stenosis / Diameter reduction (Estimation based on the indirect measurements of the internal carotid artery velocities (ICA PSV). 1. Normal (no stenosis)=ICA PSV < 180 cm/s: ratio < 2.0: ICA EDV<40 cm/s. 2. Less than 50% stenosis=ICA PSV < 180 cm/s: ratio < 2.0: ICA EDV<40 cm/s. 3. 50 to 69% stenosis=ICA PSV of 180 to 230 cm/s: ration 2.0 ? 4.0: ICA EDV 40-100 cm/s. PSV 125-180 cm/sec and ICA/CCA PSV Ratio ? 2.0 is also consistent with 50-69% stenosis 4. Greater than 70% stenosis to near occlusion= ICA PSV > 230 cm/s: ratio > 4.0: ICA EDV > 100 cm/s. 5. Near occlusion= ICA PSV velocities may be low or undetectable: variable ratio and ICA EDV. 6. Total occlusion=unable to detect flow. [facility], , 09/08/2024 10:46 AM
== END | disposition home or self-care (01) ==
LOC: RADUSWWP 09:44
PROVIDERS: ATTEND Family Medicine
DX: G45.9 Transient cerebral ischemic attack, unspecified (principal)
CPT/HCPCS: 93880

== ENCOUNTER → 2024-09-08 | Outpatient (CLI) | payer MEDICARE ==
--- NOTE | 2024-09-11 08:51 | MM ---
Reason for Exam: Screening (asymptomatic). Last mammogram was performed 1 year(s) and 1 month(s) ago. Patient History: Menarche at age 13. First Full-Term at age 19. Postmenopausal. Currently using Estrogen, for 2 months. Currently using Progesterone, for 2 months. Risk Values: Lashawn 5 year model risk: 1.4%. NCI Lifetime model risk: 3.6%. Prior Study Comparison: 01/18/2012 Bilateral Screening Mammogram, [facility]. 05/28/2016 Bilateral Screening Mammogram, [facility]. 06/08/2018 Bilateral Screening Mammogram, [facility]. 08/17/2022 Bilateral Screening Mammogram, [facility]. 08/20/2023 Bilateral Screening Mammogram, [facility]. Tissue Density: There are scattered areas of fibroglandular density. Findings: Analyzed By CAD. Benign-appearing vascular calcifications calcification bilaterally is redemonstrated. There are a few scattered tiny benign-appearing round calcifications bilaterally redemonstrated. There is no suspicious group of microcalcifications or new suspicious mass in either breast. Overall Assessment: Benign, BI-RAD 2 Management: Screening Mammogram of both breasts in 1 year. . Patient should continue monthly self-breast exams. A clinical breast exam by your physician is recommended on an annual basis. This exam should not preclude additional follow-up of suspicious palpable abnormalities. Note on Lashawn scores and lifetime risk: 1. A Lashawn score greater than 3% is considered moderate risk. If this is the case, consider specialist referral to assess eligibility for a risk reducing agent. 2. If overall lifetime risk for the development of breast cancer is 20% or higher, the patient may qualify for future screening with alternating mammogram and breast MRI. [facility], , 09/11/2024 8:47 AM. Electronically signed and approved by: Marty Campos M.D.
== END | disposition home or self-care (01) ==
LOC: RADMAMWWP 09:48
PROVIDERS: ATTEND Family Medicine
DX: Z12.31 Encounter for screening mammogram for malignant neoplasm of breast (principal); R92.323 Mammographic fibroglandular density, bilateral breasts; R92.1 Mammographic calcification found on diagnostic imaging of breast; Z78.0 Asymptomatic menopausal state
CPT/HCPCS: 77063; 77067

== ENCOUNTER → 2024-09-13 | Outpatient (CLI) | payer MEDICARE ==
--- NOTE | 2024-09-13 18:48 | CA ---
Transthoracic Echo Report Name: Glenis Lopez Age: 74 Gender: F : 1950 Exam Date: 09/13/2024 13:02 Exam Location: [facility] Ht (in): 50 Wt (lb): 178 Ordering Physician: Chester Ruggiero MD Attending/Referring Phys: Upper Extremity Surgeon Maggie Nix RDCS Procedure CPT: Indications: G45.9 Transient cerebral ischemic attack Cardiac Hx: Technical Quality: Fair Contrast 1: Total Dose (mL): Contrast 2: Total Dose (mL): MEASUREMENTS (Male / Female) Normal Values 2D ECHO LV Diastolic Diameter PLAX 4.8 cm 4.2 - 5.9 / 3.9 - 5.3 cm LV Systolic Diameter PLAX 3.2 cm IVS Diastolic Thickness 1.4 cm 0.6 - 1.0 / 0.6 - 0.9 cm LVPW Diastolic Thickness 1.5 cm 0.6 - 1.0 / 0.6 - 0.9 cm LV Relative Wall Thickness 0.6 RV Internal Dim ED PLAX 3.7 cm Aortic Root Diameter 2.8 cm LA Systolic Diameter LX 4.9 cm 3.0 - 4.0 / 2.7 - 3.8 cm LV Diastolic Volume MOD BP 82.1 cm??? 67 - 155 / 56 - 104 cm??? LV Systolic Volume MOD BP 22.6 cm??? 22 - 58 / 19 - 49 cm??? LV Ejection Fraction MOD BP 72.5 % >= 55 % LV Cardiac Index MOD BP 2272.5 cm???/min???m??? LV Diastolic Volume MOD 4C 91.1 cm??? LV Systolic Volume MOD 4C 29.2 cm??? LV Ejection Fraction MOD 4C 67.9 % LV Cardiac Index MOD 4C 2360.9 cm???/min???m??? LV Diastolic Length 4C 7.7 cm LV Systolic Length 4C 6.2 cm LV Diastolic Volume MOD 2C 71.9 cm??? LV Systolic Volume MOD 2C 17.4 cm??? LV Ejection Fraction MOD 2C 75.9 % LV Cardiac Index MOD 2C 2081.3 cm???/min???m??? LV Diastolic Length 2C 7.5 cm LV Systolic Length 2C 6.3 cm DOPPLER Mitral E Point Velocity 76.9 cm/s Mitral A Point Velocity 93.2 cm/s Mitral E to A Ratio 0.8 MV Deceleration Time 212.9 ms MV E' Velocity 4.0 cm/s Mitral E to MV E' Ratio 19.2 TR Peak Velocity 247.9 cm/s TR Peak Gradient 24.6 mmHg FINDINGS Left Ventricle Left ventricular ejection fraction is estimated at 55 to 60 %. Moderate concentric left ventricular hypertrophy. Left ventricular cavity size normal. No obvious regional wall motion abnormalities. Right Ventricle Right ventricular dilatation. Right ventricular systolic pressure within normal limits. Right Atrium Normal right atrial size. Left Atrium Left atrial dilatation. Mitral Valve Mitral annular calcification. No mitral stenosis. Mild mitral regurgitation. Aortic Valve Aortic valve not well visualized. No aortic valve stenosis or regurgitation. Tricuspid Valve Structurally normal tricuspid valve. No tricuspid stenosis. Trace tricuspid regurgitation. Pulmonic Valve Pulmonic valve not well visualized. No pulmonic stenosis. No pulmonic regurgitation. Pericardium Minimal pericardial effusion (normal variant). Aorta Normal size aortic root and proximal ascending aorta. CONCLUSIONS Normal left ventricular size and systolic function Mild mitral regurgitation Previewed by: Dr. Caden York MD (Electronically Signed) Final Date: 13 September 2024 18:48
== END | disposition home or self-care (01) ==
LOC: RADECHMAIN 12:36
PROVIDERS: ATTEND Family Medicine
DX: G45.9 Transient cerebral ischemic attack, unspecified (principal); I34.0 Nonrheumatic mitral (valve) insufficiency; I07.1 Rheumatic tricuspid insufficiency
CPT/HCPCS: 93306